=== PATIENT | male | born 1945 | race African-American/Black ===

== ENCOUNTER 2023-06-19 09:29 | Outpatient (AMB) | payer MEDICARE, SELFPAY ==
[2023-06-19 09:37] VITALS: BMI 30.1
--- NOTE | 2023-06-19 09:37 | HO.NEPHOV_ITS ---
Vital Signs 06/19/23 09:37 Height 5 ft 7 in Weight 192 lb 7 oz BMI 30.1 Intake Visit Reasons: R/S 05/15/2023/ LVM Local Hazmat Driver Required: No Accompanied by: Self / Same As Patient Allergies No Known Allergies Allergy (Verified 06/19/23 09:38) HPI Comments Details: Krzysztof is a elderly man with a history of chronic kidney disease in the setting of longstanding hypertension and diabetes mellitus. He is history of non-small cell carcinoma of the lung. He is being followed by Dr. Villasenor Recently was hospitalized for severe anemia and received blood transfusion. The recent serum creatinine 0.9 mg/dL. He is on high dose of diuretics currently on torsemide 100 mg b.i.d. and metolazone 5 mg once a day. He has been watching his weight at home. Today he denies any new complaints like headache nausea vomiting or shortness of breath. No urinary symptoms. This is a tele visit [facility] Social History Patient Tobacco Use Status: Current someday Tobacco user Use of substances other than those prescribed or required for medical reasons: No Physical Exam Vital Signs: BMI result Body Mass Index 30.1 Results Reviewed Results Reviewed: Creatinine 0.9 Nephrology Results: No Data to Display Assessment & Plan Assessment & Plan (1) CKD (chronic kidney disease): Code(s): N18.9 - Chronic kidney disease, unspecified Category: Medical Plan Elderly man with chronic kidney disease in the setting of longstanding hypertension diabetes mellitus and congestive heart failure. From a renal standpoint he is doing reasonably well. Renal function is close to baseline. Congestive heart failure he is on high-dose of diuretics continue to follow up with automotive sales specialist. Encouraged to stay on low-sodium diet and keep monitoring his weight at home. Non-small cell carcinoma of the lung being followed by oncologist. History of severe anemia status post blood transfusion. No absolute indication for Epogen at this time. No changes were made to his prescriptions today. She will follow along as needed. Orders: Orders Basic Metabolic Panel 3 Months N18.9 - Chronic kidney disease, unspecified Basic Metabolic Panel 5 Weeks N18.9 - Chronic kidney disease, unspecified Coding Level of Care Code Tele New Pt Level 3 (18184) Diagnoses CKD (chronic kidney disease) N18.9
== END 2023-06-19 10:08 | disposition home or self-care (01) ==
PROVIDERS: PCP Internal Medicine; Visit Provider Internal Medicine Hypertension Specialist
DX: I13.0 Hypertensive heart and chronic kidney disease with heart failure and stage 1 through stage 4 chronic kidney disease, or unspecified chronic kidney disease (principal); E11.22 Type 2 diabetes mellitus with diabetic chronic kidney disease; I50.9 Heart failure, unspecified; N18.9 Chronic kidney disease, unspecified
CPT/HCPCS: 99442

== ENCOUNTER → 2023-06-19 09:29 | Outpatient (BNVA) | payer MEDICARE, SELFPAY | PROVIDERS: PCP Internal Medicine; Visit Provider Internal Medicine Hypertension Specialist ==

== ENCOUNTER 2023-10-11 12:16 | Outpatient (AMB) | payer MEDICARE, SELFPAY ==
[2023-10-11 12:17] VITALS: BP 102/42; PULSE 73; O2SAT 94
--- NOTE | 2023-10-11 12:17 | HO.NEPHOV_ITS ---
Vital Signs 10/11/23 12:17 Height 5 ft 7 in BP 102/42 L Blood Pressure Location Rt brachial Position Sitting Pulse 73 Pulse Source Pulse Oximeter Pulse Oximetry (%) 94 Oxygen Delivery Method Room Air Intake Visit Reasons: 3 mon follow up- Conf Driller And Broacher Required: No Accompanied by: Spouse Allergies No Known Allergies Allergy (Verified 10/11/23 12:20) Medication List - Last Reconciled 10/11/23 by Tobi Lee MD albuterol sulfate 90 mcg/actuation (Ventolin HFA) inhalation ascorbic acid (vitamin C) (Vitamin C) 500 mg PO DAILY atorvastatin 40 mg PO DAILY dapagliflozin propanediol (Farxiga) 10 mg PO DAILY digoxin 125 mcg PO DAILY ferrous sulfate 325 mg PO BID insulin glargine (Basaglar KwikPen U-100 Insulin) units subcut insulin lispro (Admelog U-100 Insulin lispro) subcut insulin syringe-needle U-100 As directed metolazone 5 mg PO ONCE metoprolol succinate ER 25 mg PO DAILY spironolactone 25 mg PO DAILY torsemide 100 mg PO BID HPI Comments Details: Krzysztof is a elderly man with a history of chronic kidney disease in the setting of longstanding hypertension and diabetes mellitus. He is history of non-small cell carcinoma of the lung. He is being followed by Dr. Villasenor Recently was hospitalized for severe anemia and received blood transfusion. The recent serum creatinine 0.9 mg/dL. He is on high dose of diuretics currently on torsemide 100 mg b.i.d. and metolazone 5 mg once a day. He has been watching his weight at home. Today he denies any new complaints like headache nausea vomiting or shortness of breath. No urinary symptoms. [facility] Social History Patient Tobacco Use Status: Current someday Tobacco user Physical Exam Vital Signs: Last Vital Signs Pulse 73 10/11/23 12:17 BP 102/42 L 10/11/23 12:17 Pulse Ox 94 10/11/23 12:17 Oxygen Delivery Method Room Air 10/11/23 12:17 Const General: comfortable; No acute distress Orientation/consciousness: patient oriented x3 Eyes General: appearance normal, both eyes and all related structures Visual Modi: normal visual modi by confrontation Neck Neck: Yes supple and Yes no JVD Resp Effort & Inspection: normal respiratory effort and respiratory effort not decreased Auscultation: rhonchi Cardio Palpation: no palpable S3 and no palpable S4 Heart sounds: no rubs GI Inspection: Yes normal to inspection Palpation (GI): Soft to palpation Percussion: Yes normal to percussion Auscultation: normal bowel sounds General: Yes no CVA tenderness Back/Spine/Pelvis Back: no CVA tenderness Skin General skin exam: no petechiae and no purpura Neuro General: patient oriented x3 and no focal motor deficits Extrem General: No clubbing Results Reviewed Results Reviewed: Creatinine 0.9 Nephrology Results: No Data to Display Assessment & Plan Assessment & Plan (1) CKD (chronic kidney disease): Code(s): N18.9 - Chronic kidney disease, unspecified Category: Medical Plan Elderly man with chronic kidney disease in the setting of longstanding hypertension diabetes mellitus and congestive heart failure. From a renal standpoint he is doing reasonably well. Renal function is close to baseline. Congestive heart failure he is on high-dose of diuretics continue to follow up with resident services coordinator. Encouraged to stay on low-sodium diet and keep monitoring his weight at home. Non-small cell carcinoma of the lung being followed by oncologist. History of severe anemia status post blood transfusion. No absolute indication for Epogen at this time. No changes were made to his prescriptions today. She will follow along as needed. Orders: Orders Electrolytes 6 Months N18.9 - Chronic kidney disease, unspecified Blood Urea Nitrogen 6 Months N18.9 - Chronic kidney disease, unspecified Creatinine 6 Months N18.9 - Chronic kidney disease, unspecified Coding Level of Care Code Est Pt Level 4 (58028) Diagnoses CKD (chronic kidney disease) N18.9
== END 2023-10-11 12:43 | disposition home or self-care (01) ==
PROVIDERS: PCP Internal Medicine; Visit Provider Internal Medicine Hypertension Specialist
DX: N18.9 Chronic kidney disease, unspecified (principal)
CPT/HCPCS: 99214

== ENCOUNTER → 2023-10-11 12:16 | Outpatient (BNVA) | payer MEDICARE, SELFPAY | PROVIDERS: PCP Internal Medicine; Visit Provider Internal Medicine Hypertension Specialist | DX: E11.22 Type 2 diabetes mellitus with diabetic chronic kidney disease (principal); I12.9 Hypertensive chronic kidney disease with stage 1 through stage 4 chronic kidney disease, or unspecified chronic kidney disease; N18.9 Chronic kidney disease, unspecified | CPT/HCPCS: 99212 ==

== ENCOUNTER 2024-04-08 11:47 | Outpatient (AMB) | payer MEDICARE, SELFPAY ==
--- NOTE | 2024-04-08 11:51 | HO.NEPHOV ---
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 And Receiving Material Handler Required: No Accompanied by: Spouse Allergies No Known Allergies Allergy (Verified 04/08/24 11:53) Medication List - Last Reconciled 04/08/24 by Tobi Lee MD albuterol sulfate 90 mcg/actuation (Ventolin HFA) inhalation ascorbic acid (vitamin C) (Vitamin C) 500 mg PO DAILY atorvastatin 40 mg PO DAILY dapagliflozin propanediol (Farxiga) 10 mg PO DAILY digoxin 125 mcg PO DAILY ferrous sulfate 325 mg PO BID insulin glargine (Basaglar KwikPen U-100 Insulin) units subcut insulin lispro (Admelog U-100 Insulin lispro) subcut insulin syringe-needle U-100 As directed metolazone 5 mg PO ONCE metoprolol succinate ER 25 mg PO DAILY pantoprazole 40 mg PO BID potassium chloride ER mEq PO DAILY spironolactone 25 mg PO DAILY torsemide 100 mg PO BID umeclidinium-vilanterol 62.5-25 mcg/actuation (Anoro Ellipta) 1 inh inhalation DAILY HPI Comments Details: Krzysztof is a elderly man with a history of chronic kidney disease in the setting of longstanding hypertension and diabetes mellitus. He is history of non-small cell carcinoma of the lung. He is being followed by Dr. Villasenor Recently was hospitalized for severe anemia and received blood transfusion. The recent serum creatinine 0.9 mg/dL. He is on high dose of diuretics currently on torsemide 100 mg b.i.d. and metolazone 5 mg once a day. He has been watching his weight at home. Today he denies any new complaints like headache nausea vomiting or shortness of breath. No urinary symptoms. 04/08/24 Had 3 hospitalization Had GI bleed s/p Endo s/p IV Iron for anemia Has a lung nodule and starting radiation Rx on April 20 [facility] Social History Patient Tobacco Use Status: Current someday Tobacco user Physical Exam Const General: comfortable; No acute distress Orientation/consciousness: patient oriented x3 Eyes General: appearance normal, both eyes and all related structures Visual Modi: normal visual modi by confrontation Neck Neck: Yes supple and Yes no JVD Resp Effort & Inspection: normal respiratory effort and respiratory effort not decreased Auscultation: rhonchi Cardio Palpation: no palpable S3 and no palpable S4 Heart sounds: no rubs GI Inspection: Yes normal to inspection Palpation (GI): Soft to palpation Percussion: Yes normal to percussion Auscultation: normal bowel sounds General: Yes no CVA tenderness Back/Spine/Pelvis Back: no CVA tenderness Skin General skin exam: no petechiae and no purpura Neuro General: patient oriented x3 and no focal motor deficits Extrem General: No clubbing Results Reviewed Results Reviewed: Creatinine 0.9 01/25/24 BUN 28 Cr 1.2 03/21/24 BUN 32 : cr 1.12 Nephrology Results: No Data to Display Assessment & Plan Assessment & Plan (1) CKD (chronic kidney disease): Code(s): N18.9 - Chronic kidney disease, unspecified Category: Medical Plan Elderly man with chronic kidney disease in the setting of longstanding hypertension diabetes mellitus and congestive heart failure. From a renal standpoint he is doing reasonably well. Renal function is close to baseline. Congestive heart failure he was on high-dose of diuretics continue to follow up with production worker. Encouraged to stay on low-sodium diet and keep monitoring his weight at home. Non-small cell carcinoma of the lung being followed by oncologist. Await radiationRx History of severe anemia status post blood transfusion. s/p EGD and IV Iron No absolute indication for Epogen at this time. No changes were made to his prescriptions today. Shall will follow along as needed. Orders: Orders Basic Metabolic Panel 4 Months N18.9 - Chronic kidney disease, unspecified Coding Level of Care Code Est Pt Level 4 (34013) Diagnoses CKD (chronic kidney disease) N18.9
[2024-04-08 11:57] VITALS: BP 98/58; PULSE 73; O2SAT 98
--- OUTSIDE RECORDS SUMMARY | 2024-04-08 12:20 | XMS_ITS | Continuity of Care Document ---
Author Organization [facility] Address [address] [place] [address]- Care Team Providers Care Kiln Feeder Name Role Phone Buddy Cota MD Primary Care Physician Encounter [facility] Date(s): 03/06/24 - 04/05/[address] [address] Encounter Type: Triage Allergies, Adverse Reactions, Alerts No Known Allergies Immunizations Given and Recorded Vaccine Date Status Refusal Reason SARS-CoV-2 (COVID-19) mRNA BNT-162b2 vac 12/31/21 Recorded SARS-CoV-2 (COVID-19) mRNA BNT-162b2 vac 01/01/21 Recorded SARS-CoV-2 (COVID-19) mRNA BNT-162b2 vac 06/10/20 Recorded SARS-CoV-2 (COVID-19) mRNA BNT-162b2 vac 05/19/20 Recorded SARS-CoV-2 mRNA ([id number]) vax 08/08/21 Recorded Medications Admelog 100 units/mL injectable solution = 1 units, Subcutaneous Infusion, 3 times a day, 0 Refills, Maintenance, 10/03/23 2:19:00 PM EDT, Partial fill upon patient request if the prescription is for a schedule II opioid drug. Start Date: 10/03/23 Status: Ordered Repeat number: 1 Anoro Ellipta 62.5 mcg-25 mcg/inh inhalation powder 1 puffs, Inhalation, Daily, # 3 each, 4 Refills, Maintenance, 09/09/23 9:58:00 AM EDT, Powder, Partial fill upon patient request if the prescription is for a schedule II opioid drug. Start Date: 09/09/23 Stop Date: 12/02/24 Status: Ordered Quantity: 3.0 Unit: each Repeat number: 5 atorvastatin 40 mg oral tablet 1 tablet = 40 mg, By Mouth, Daily at bedtime, # 90 tablet, 3 Refills, Maintenance, 11/25/23 1:29:00 PM EDT, Tablet, [id number], Partial fill upon patient request if the prescription is for a schedule II opioid drug., 170, cm, 11/12/23 13:11:00 EDT, Height, 88.7, kg, 06/18/23 11:12:00 EDT,Dry Weight Start Date: 11/25/23 Status: Ordered Quantity: 90.0 Unit: tablet Repeat number: 4 Basaglar KwikPen = 28 units, Subcutaneous Infusion, Daily, 30 units of Basaglar in the morning, and 12 at night., 0 Refills, Maintenance, 10/03/23 2:20:00 PM EDT, Partial fill upon patient request if the prescription is for a schedule II opioid drug. Start Date: 10/03/23 Status: Ordered Repeat number: 1 Basaglar KwikPen = 8 units, Subcutaneous Infusion, Daily at bedtime, 0 Refills, Maintenance, 02/28/24 8:49:00 AM EST,Partial fill upon patient request if the prescription is for a schedule II opioid drug. Start Date: 02/28/24 Status: Ordered Repeat number: 1 BiPAP Machine See Instructions, # 1 each, Maintenance, BIPAP 02/12, use daily while sleeping. Can adjust setting as needed, 08/27/22 3:52:00 PM EDT, Supply Start Date: 08/27/22 Status: Ordered Quantity: 1.0 Unit: each Repeat number: 1 digoxin 0.125 mg oral tablet 0.125 mg, By Mouth, Daily, # 90 tablet, Refills 3, Tot. Refills 3, Maintenance, 05/13/23 8:19:00 AM EDT, Route to Pharmacy Electronically, [id number], Partial fill upon patient request if the prescription is for a schedule II opioid drug., 176, cm, 04/18/23 15:05:00 EST, Height, 97, kg, 08/18/22 22:12:00 EDT, Dry Weight Start Date: 05/13/23 Status: Ordered Quantity: 90.0 Unit: tablet Repeat number: 4 Farxiga 10 mg oral tablet 1 tablet = 10 mg, By Mouth, Daily, # 30 tablet, 5 Refills, Maintenance, 04/15/21 12:01:00 PM EST, Tablet, [id number], Partial fill upon patient request if the prescription is for a scheduleII opioid drug., 170.2, cm, 04/14/21 12:37:00 EST, Height, 96.2, kg, 04/07/21 6:08:00 EST, Dry Weight Start Date: 04/15/21 Status: Ordered Quantity: 30.0 Unit: tablet Repeat number: 6 ferrous sulfate 325 mg oral tablet 1 tablet = 325 mg, By Mouth, 2 times a day, # 90 tablet, 1 Refills, Maintenance, 05/21/23 1:36:00 PM EDT, Tablet, [facility], 170, cm, 05/21/23 7:47:00 EDT, Height, 91.8, kg, 05/18/23 13:29:00 EDT, Dry Weight Start Date: 05/21/23 Status: Ordered Quantity: 90.0 Unit: tablet Repeat number: 2 metolazone 5 mg oral tablet TAKE ONE TABLET BY MOUTH EVERY SATURDAY: TAKE 30 MINUTES BEFORE THE TORSEMIDE DOSE EVERY SATURDAY Start Date: 03/17/24 Status: Ordered Repeat number: 1 metoprolol 25 mg oral tablet, extended release 25 mg, 1, tablet, By Mouth, Daily, # 90 tablet, Refills 3, Tot. Refills 3, Maintenance, 11/25/23 1:29:00 PM EDT, Route to Pharmacy Electronically, [id number], Partial fill upon patient request if the prescription is for a schedule II opioid drug., 170, cm, 11/12/23 13:11:00 EDT, Height, 88.7, kg, 06/18/23 11:12:00 EDT, Dry Weight Start Date: 11/25/23 Status: Ordered Quantity: 90.0 Unit: tablet Repeat number: 4 o2 concentrator o2 concentrator, See Instructions, # 1 each, Refills 0, Tot. Refills 0, Maintenance, 5 Liter O2 concentrator - fax is [phone] - use order # [id number], 12/20/23 2:16:00 PM EDT, Supply Start Date: 12/20/23 Status: Ordered Quantity: 1.0 Unit: each Repeat number: 1 Potassium Chloride (Eqv-K-Tab) 20 mEq oral tablet, extended release 1 tablet = 20 mEq, By Mouth, Daily, MD aware of spironolactone, # 30 tablet, 2 Refills, Maintenance, 03/06/24 2:30:00 PM EST, ER Tablet, [id number], Partial fill upon patient request if theprescription is for a schedule II opioid drug., 170, cm, 02/28/24 16:15:00 EST, Height, 85, kg, 02/28/24 16:15:00 EST, Dry Weight Start Date: 03/06/24 Status: Ordered Quantity: 30.0 Unit: tablet Repeat number: 3 Protonix 40 mg oral delayed release tablet 1 tablet = 40 mg, By Mouth, 2 times a day, # 60 tablet, 0 Refills, Maintenance, 02/20/24 9:08:00 AM EST, EC Tablet, 170, cm, 02/20/24 6:19:00 EST, Height, 85, kg, 02/17/24 14:59:00 EST, Dry Weight Start Date: 02/20/24 Stop Date: 03/21/24 Status: Ordered Quantity: 60.0 Unit: tablet Repeat number: 1 spironolactone 25 mg oral tablet 25 mg, 1, tablet, By Mouth, Daily, # 90 tablet, Refills 3, Tot. Refills 3, Maintenance, 10/29/23 4:52:00 PM EDT, Route to Pharmacy Electronically, [id number], Partial fill upon patient request if the prescription is for a schedule II opioid drug., 170, cm, 10/17/23 10:24:00 EDT, Height, 88.7, kg, 06/18/23 11:12:00 EDT, Dry Weight Start Date: 10/29/23 Status: Ordered Quantity: 90.0 Unit: tablet Repeat number: 4 Theratrum Complete with Lutein and Lycopene By Mouth, Daily, 0 Refills, Maintenance, 10/17/23 3:52:00 PM EDT, Partial fill upon patient request if the prescription is for a schedule II opioid drug. Start Date: 10/17/23 Status: Ordered Repeat number: 1 torsemide 100 mg oral tablet 1 tablet = 100 mg, By Mouth, 2 times a day, # 120 each, 3 Refills, Maintenance, 08/14/23 4:54:00 PM EDT, Tablet, [id number], Partial fill upon patient request if the prescription is for a schedule II opioid drug., 170, cm, 06/26/23 13:01:00 EDT, Height, 88.7, kg, 06/18/23 11:12:00 EDT, Dry Weight Start Date: 08/14/23 Status: Ordered Quantity: 120.0 Unit: each Repeat number: 4 Ventolin HFA 108 mcg/inh inhalation aerosol with adapter 2 puffs, Inhalation, 4 times a day, PRN for wheezing, # 18 Gm, 0 Refills, Maintenance, 08/19/22 2:26:00 AM EDT, Aerosol, Partial fill upon patient request if the prescription is for a schedule II opioid drug. Start Date: 08/19/22 Status: Ordered Quantity: 18.0 Unit: g Repeat number: 1 Vitamin C 500 mg oral tablet 1 tablet = 500 mg, By Mouth, Daily, 0 Refills, Maintenance, 03/06/24 4:15:00 PM EST, Partial fill upon patient request if the prescription is for a schedule II opioid drug. Start Date: 03/06/24 Status: Ordered Repeat number: 1 Problem List Condition Confirmation Course Effective Dates Status Health Status Informant Abdominal aortic aneurysm (AAA) 3.0 cm to 5.5 cm in diameter in male Confirmed Active Biventricular heart failure with reduced left ventricular function Confirmed Active Coronary artery calcification Confirmed Active Non-ischemic cardiomyopathy Confirmed Active Chronic respiratory failure with hypoxia, on home O2 therapy Confirmed Active COPD without exacerbation Confirmed Active Carotid disease, bilateral Confirmed Active Anticoagulated Confirmed Active History of lung cancer Confirmed Active Hypercholesterolemia Confirmed Active Iron deficiency anemia Confirmed Active Presence of Watchman left atrial appendage closure device Confirmed Active Nicotine dependence Confirmed Active Non compliance w medication regimen Confirmed Active Nonsustained ventricular tachycardia Confirmed Active Obese class I Confirmed Active WENDI (obstructive sleep apnea) Confirmed Active Permanent atrial fibrillation Confirmed Active 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 Type: Cigarettes. Sex Sex Representation Male (finding) Patient Care team information Care Team Personnel Name: Buddy Cota MD Position: [facility] Physician - Pediatrics Member Role: PCP Address: [address] [place] [address] - [place] Telecom: Name: Rosa MCLEOD, Tobi Wheeler Position: [facility] Renal MD Member Role: Lifetime Consulting Physician Address: [address] [place] [address] [address] [place] [address]- [place] Telecom: Name: Rita Gaona RN Position: [facility] RN Member Role: Primary Care Nurse Name: Ketty Davis Position: [facility] RN Supv Member Role: Primary Care Nurse Name: Camryn Peña RN Position: S RN Member Role: Primary Care Nurse Name: Ilene Cuba RN Position: S RN Member Role: Primary Care Nurse Name: Tabatha Whitley RN Position: [facility] RN Member Role: Primary Care Nurse Name: Boyd Da Silva RN Position: [facility] RN Member Role: Primary Care Nurse Name: Kd Oconnor MD Position: S Outreach Member Role: Lifetime Consulting Physician Address: [address] [facility] [place] [address]- Telecom: Name: Omayra Platt RN Position: [facility] Outreach Member Role: Primary Care Nurse Name: Sean Sawant MD Position: [facility] Renal MD Member Role: Lifetime Consulting Physician Address: [address] [facility] [place] [place] [address]- [place] Telecom: Name: Janette Alcala RN Position: [facility] RN Member Role: Primary Care Nurse Care Team Related Persons Name: SLY WILKERSON Name: SLY WILKERSON Name: SLY WILKERSON Insurance Providers Guarantor name: TONY MCKEON RHEA Health Plan Information #: 1 Payer: MEDICARE A INPT 25 Member Number: NA Policy Number: NA Group Number: NA Health Plan Information #: 2 Payer: [employer] SUP Member Number: NA Policy Number: NA Group Number: NA
--- OUTSIDE RECORDS SUMMARY | 2024-04-08 12:20 | XMS_ITS | Patient Health Record ---
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 Name Role Phone Buddy Cota MD Primary Care Provider Fili ilable Black, Liza Unavailable [phone] Allergies No Known Allergies Results Component Value Reference Range Notes HEMOGLOBIN A1C (GLYCOHEMOGLO BIN) Reviewed date:01/29/2024 01:48:15 PM Interpretation: Performing Lab: Notes/Report: TOTAL HEMOGLOBIN (HGBA1C) 7.6 Reason For Referral No Information Medications Medication SIG (Take, Route, Frequency, Duration) Notes Start Date End Date Status Multivitamin Active Pravastatin Sodium 40 MG 1 tablet Orally Once a day for 30 day(s) Not-Taking metOLazone 5 MG 1 tablet Orally Once a day Active Sacubitril-Valsartan 24-26 MG 1 tablet Orally Twice a day for 30 day(s) Not-Taking Metoprolol Succinate Active Jardiance 25 MG 1 tablet Orally Once a day for 30 day(s) Not-Taking Vitamin C Active Metoprolol Tartrate 25 MG 1 tablet with food Orally Twice a day for 30 day(s) Not-Taking Spironolactone 25 MG 1 tablet Orally for 30 day(s) Not-Taking Nicotine 7 MG/24HR 1 patch to skin Transdermal Once a day for 30 day(s) Not-Taking Farxiga 10 MG 1 tablet Orally Once a day Not-Taking Proventil HFA 108 (90 Base) MCG/ACT 1 puff as needed Inhalation every 4 hrs Not-Takin g Insulin Not-Taking Ipratropium [place] Not-Taking Umeclidinium-Vilanterol Not-Taking Basaglar KwikPen 100 UNIT/ML as directed Subcutaneous Active Digoxin 125 MCG 1 tablet Orally for 30 day(s) Active Rivaroxaban 20 MG 1 tablet Orally Once a day Not-Taking Ammonium Lactate 12 % 1 application Externally to affected areas of dry skin to feet except for between the toes Twice a day for 30 days Active Anoro Ellipta 62.5-25 MCG/INH 1 puff Inhalation Once a day Active Torsemide 40 MG 1 tablet Orally Once a day Active Insulin Aspart Activ e Nicotine 21 MG/24HR 1 patch to skin Transdermal Once a day for 30 day(s) Active oxygen Active Dapagliflozin Propanediol Active Atorvastatin Calcium 40 MG 1 tablet Orally Once a day Active glipiZIDE 10 MG 1 tablet 30 minutes before breakfast Orally Once a day for 30 day(s) Not-Taking Ferrous Sulfate Acti ve Chromium Picolinate 200 MCG 1 tablet Orally Once a day for 30 day(s) Not-Taking Immunizations Vaccine Route Administration Date Status Comme nts COVID-19 Pfizer BioNTech Vaccine Unknown 01/01/2021 Administered 1ST DOSE: 05/19/2020 2ND DOSE: 06/10/2020 Influenza Unknown 11/25/2020 Administered Social History Tobacco Use: Social History Observation Description Date Details (start date - stop date) Current Smoker NA - NA Tobacco use other than smoking: Question Answer Notes Are you an other tobacco user? No Tobacco Control (Standard) Question Answer Notes Tobacco use: Current smoker How often do you smoke cigarettes? Every day How many cigarettes a day do you smoke? 21-30 How soon after you wake up d o you smoke your first cigarette? 6-30 minutes Are you interested in quitting? Thinking about q uitting AUDIT-C (Standard) Question Answer Notes Did you have a drink contain ing alcohol in the past year? Yes How often did you have six o r more drinks on one occasion in the past year? Never (0 point) How many drinks did you have on a typical day when you were drinking in the past year? 1 or 2 drinks (0 point) How often did you have a dri nk containing alcohol in the past year? Monthly or less (1 point) Points 1 Interpretation Negative Problems Problem Type SNOMED Code ICD Code Onset Dates Problem Status W/U Status Risk Notes Problem Acquired hammer toe of right foot (5614322609884458) Other hammer toe(s) (acquired), right foot (M20.41) Active confirmed Problem Acquired hammer toe of left foot (7386748549431867) Other hammer toe(s) (acquired), left foot (M20.42) Active confirmed Problem Polyneuropathy due to type 2 diabetes mellitus (752074097) Type 2 diabetes mellitus with diabetic polyneuropathy (E11.42) Active confirmed Problem 51608415049316450 Pressure injur y of left heel, unstageable (L89.620) Active confirmed Problem 43583133303554989 Pressure injur y of right heel, unstageable (L89.610) Active confirmed Problem 22225012 Essential hypertension (I10) Active confirmed Vital Signs Blood pressure diastolic 60 mm Hg 01/29/2024 Height 5ft 7in in 01/29/2024 Blood pressure systolic 110 mm Hg 01/29/2024 Weight 188 lbs 01/29/2024 BMI 29.44 kg/m2 01/29/2024 Procedures Procedure Date Ordered Date Performed Result Body Sit e 72104-QQJJPEA NAIL, 6 OR MORE 06/05/2023 N/A 57968-Ngwzuyxz Plate 06/05/2023 N/A 89923-LUNR SKIN LESIONS, OVER 4 06/05/2023 N/A 37867-RCDWNHA NAIL, 6 OR MORE 01/29/2024 N/A 03769-JTPX SKIN LESIONS, OVER 4 01/29/2024 N/A Encounters Encounter Location Date Provider Diagnosis [address] [address] 06/05/2023 Liza Black Type 2 diabetes mellitus with diabetic polyneuropathy E11.42 ; Tinea unguium B35.1 and Ingrown nail L60.[address] [address] 01/29/2024 Liza Black Type 2 diabetes mellitus with diabetic polyneuropathy E11.42 ; Tinea unguium B35.1 and Xerosis of skin L85.3 [facility] [address] [place] [address] 12/04/2023 Liza Black Assessments Encounter Date Diagnosis (ICD Code) Assessment Notes Treatment Notes Treatment Clinical Notes Section Notes 06/05/2023 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.42) 01/29/2024 Tinea unguium (ICD-10 - B35.1) 01/29/2024 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.42) 06/05/2023 Tinea unguium (ICD-10 - B35.1) 06/05/2023 Ingrown nail (ICD-10 - L60.0) 01/29/2024 Xerosis of skin (ICD-10 - L85.3) Plan Of Treatment Pending Test Test Name Order Date 22893-GNPEVMB NAIL, 6 OR MORE 01/10/2021 52690-KWWAIFX NAIL, 6 OR MORE 07/11/2021 12810-VTYLIRK NAIL, 6 OR MORE 01/09/2022 85320-YZCTFJH NAIL, 6 OR MORE 09/14/2022 51812-CVLXZVC NAIL, 6 OR MORE 12/14/2022 57065-KQVHTOT NAIL, 6 OR MORE 06/05/2023 54878-WUAVIXB NAIL, 6 OR MORE 01/29/2024 35181-Tkxevxhi Plate 01/10/2021 05882-Gqsfivhw Plate 06/05/2023 29730-RVWE SKIN LESIONS, OVER 4 06/05/19 24 64683-YXSH SKIN LESIONS, OVER 4 01/29/20 24 37842-BSNX SKIN LESIONS, OVER 4 12/15/19 23 14208-IOXX SKIN LESIONS, OVER 4 09/15/19 23 30544-DPUW SKIN LESIONS, OVER 4 01/10/20 22 55073-THYP SKIN LESIONS, OVER 4 07/12/19 22 Next Appt Details Provider Name:Liza De Guzman , 06/03/2024 12:00:00 PM, [address] [facility], [place], [address], Insurance Providers Payer Name Payer Address Payer Phone Subscriber Number Group Number Insured Name Patient Relationship to Insured Coverage Start Date Coverage End Date Medicare National Gov[employer] [address] [place] [address] [phone] [id number] Christian Flowers Self - patient is the insured [employer] Medicare [id number] [address] [address] [place] [address] [id number] 1 Christian Flowers Self - patient is the insured Medical (General) History Medical History History ICD Code Cancer Diabetes type 2 Chicken Pox Heart Disease Surgical History Surgery Date(Month/Year) defib 05/2022 Watchman Procedure 12/18/23 Hospitalization History Reason Date(Month/Year) [facility]- low hemoglobin count 05/12-05/20 [facility]- edema, fluid 08/18-09/07/22 [facility] hemoglobin low 04/11/21
--- OUTSIDE RECORDS SUMMARY | 2024-04-08 12:20 | XMS_ITS | Clinical Summary ---
Author Organization [facility] Address [address] [facility] [facility] [address] [place] [address] Phone Care Team Providers Care Slip Maker Name Role Phone Buddy Cota MD Primary Care Provider [phone] Allergies No known active allergies Medications insulin glargine (Basaglar KwikPen) 100 UNIT/ML injection 34 units Active nicotine (NICODERM CQ) 21 MG/24HR Place 21 mg on the skin daily 10/15/2019 Active digoxin (LANOXIN) 125 MCG tablet TAKE 1 TABLET (125 MCG TOTAL) BY MOUTH ONCE DAILY 05/10/2020 Active insulin aspart (NovoLOG) 100 UNIT/ML injection Inject under the skin Active torsemide (DEMADEX) 100 MG tablet Take 20 mg by mouth in the morning. 12/30/2019 Active spironolactone (ALDACTONE) 25 MG tablet 12.5 mg 12/08/2020 Active atorvastatin (LIPITOR) 40 MG tablet Take 40 mg by mouth every morning 04/15/2021 Active Farxiga 10 MG tablet Take 1 tablet by mouth 1 (one) time each day 08/11/2021 Active omeprazole (PriLOSEC) [address] capsule Take 20 mg by mouth 10/17/2021 Active rivaroxaban (XARELTO) 20 MG tablet Take 20 mg by mouth 10/19/2021 Active Active Problems Problem Noted Date Diagnosed Date History of malignant neoplasm of thoracic cavity structure 03/07/2022 Drug therapy finding 03/07/2022 Chronic obstructive pulmonary disease 03/07/2022 Abdominal aortic aneurysm 03/07/2022 Chronic hypoxemic respiratory failure 03/07/2022 Noncompliance with medication regimen 03/07/2022 Iron deficiency anemia 03/07/2022 Nonsustained ventricular tachycardia 03/07/2022 Obese class I 03/07/2022 Type 2 diabetes mellitus 03/07/2022 Permanent atrial fibrillation 03/07/2022 Obstructive sleep apnea syndrome 03/07/2022 Renal disorder due to type 2 diabetes mellitus 0 07/13/2020 Hypertensive heart and renal disease with (congestive) heart failure 07/13/2020 Chronic kidney disease stage 2 07/13/2020 Atypical atrial flutter 11/25/2019 Pre-operative cardiovascular examination 019 Overview (07/19/2020): Last Assessment & Plan: Cording to the revised cardiac risk index, he has a 6% risk of a major cardiac event related to this upcoming surgery given his history of congestive heart failure. He is euvolemic on exam. He is not describing any symptoms of heart failure. He is stable at this time. He does not require any cardiac testing prior to his upcoming surgery. He is able to perform at least 4 METS of activity with no symptoms. This has been reviewed with Dr Reyes. Disorder of carotid artery 04/03/2017 Essential hypertension 04/03/2017 Overview (07/19/2020): Last Assessment & Plan: Pressure today is normal. Hyperlipidemia 04/03/2017 Primary cardiomyopathy 04/03/2017 Overview (07/19/2020): Last Assessment & Plan: He has a long history of a cardiomyopathy. Catheterization upon diagnosis showed no significant CAD. The last echocardiogram that I am able to locate shows an EF of 30-35%. He is appropriately on metoprolol succinate and lisinopril. He does not recall ever having a discussion about ICD placement. I would like him to have a repeat echocardiogram. I will follow-up with him after that. Systolic heart failure 04/03/2017 Tobacco dependence syndrome 04/03/2017 Immunizations Name Administration Dates Next Due Pneumococcal Polysaccharide 11/24/2014 Family History Medical History Relation Comments Diabetes Father Relation Status Comments Father Unknown Mother Unknown Social History Tobacco Use Types Packs/Day Years Used Date Smoking Tobacco: Every Day Cigarettes Smokeless Tobacco: Never Sex and Gender Information Value Date Recorded Sex Assigned at Not on file Legal Sex Male 4:41 PM EST Gender Identity Not on file Sexual Orientation Not on file Last Filed Vital Signs Vital Sign Reading Time Taken Comments Blood Pressure 136/62 03/07/2022 4:39 PM EST Pulse 88 03/07/2022 4:39 PM EST Temperature - - Respiratory Rate - - Oxygen Saturation 96% 03/07/2022 4:39 PM EST Inhaled Oxygen Concentration - - Weight 94.1 kg (207 lb 6.4 oz) 03/07/2022 4:39 P M EST Height 170.2 cm (5' 7 ) 12/14/2020 2:16 PM EDT Body Mass Index 32.48 12/14/2020 2:16 PM EDT Plan of Treatment Upcoming Encounters Date Type Department Care Team (Late st Contact Info) Description 04/20/2024 2:45 PM EST Office Visit [facility] [address] [address] Heather Elliott ARNP [address] [id number] Health Maintenance Due Date Last Done Comments Pneumococcal Vaccine: 65+ Years (2 of 2 - PCV) 11/25/2015 11/24/2014 Diabetes: Ophthalmology Exam 03/21/2020 Diabetes: Pedal Pulse Checked 03/21/2020 Diabetes: Sensory Foot Exam 03/21/2020 Diabetes: Visual Foot Exam 03/21/2020 Diabetes: Hemoglobin A1C 04/15/2022 022, 09/10/2019 Influenza Vaccine (#1) 2023 0, 12/10/2018 Hepatitis B Vaccine Aged Out No longe r eligible based on patient's age to complete this topic Procedures Procedure Name Priority Date/Time Associated Diagnosis Comments HEMOGLOBIN A1C W EAG Routine 01/13/2022 10:36 AM EST from Last 3 Months or Most Recently Relevant to Health Maintenance Results * (ABNORMAL) HEMOGLOBIN A1C W EAG (01/13/2022 10:36 AM EST) Hemoglobin A1C 7.0(H) (4.0-5.6) % [facility] Comment: MONITORING: In known diabetic patients, hemoglobin A1c targets should be discussed with health care provider. DIAGNOSTIC USE: ??The [place] Diabetes Association (ADA) and the World Health Organization (WHO) recommend the use of HbA1c to diagnose diabetes using a threshold of 6.5%. Patients who have an HbA1c between 5.7% and 6.4% are considered at increased risk for developing diabetes in the future. CAUTION: Falsely low HbA1c results may be observed in patients with hemolytic anemia, homozygous forms of abnormal hemoglobin (e.g. SS, CC, SC), , recent blood loss or hemoglobin F greater than 7%. Fructosamine may be used as an alternate test in these cases. REFERENCE: ADA: Standards of Medical Care in Diabetes 2020, The Journal of Clinical and Applied Research and Education Volume 43, Supplement 1 Estimated Average Glucose 154 MG/DL [facility] Comment: Testing performed or reported by [facility] Reference Leaders2020, a Service of [facility], [address] [place] [address] Yariel Huston MD, Slusher Operator [facility]# [id number] 01/13/2022 10:3 6 AM EST 01/13/2022 10:39 AM EST us Aps External Provider LAB BLOOD ORDERABLES Final Result [facility] from Last 3 Months or Most Recently Relevant to Health Maintenance Insurance MEDICARE [facility] MEDICARE [facility] Care Teams Slip Maker Relationship Specialty Start Date End Date Buddy Cota MD [address] [facility] [address] [place] [id number] PCP - General 02/29/20
--- OUTSIDE RECORDS SUMMARY | 2024-04-08 12:20 | XMS_ITS | Continuity of Care Document ---
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 Name Role Phone Buddy Cota MD Primary Care Physician [id number] Date[facility]/03/24 - 04/02/24 [facility] [address] [place] [address] Encounter Type: Triage Allergies, Adverse Reactions, Alerts No Known Allergies Immunizations Given and Recorded Vaccine Date Status Refusal Reason SARS-CoV-2 (COVID-19) mRNA BNT-162b2 vac 12/31/21 Recorded SARS-CoV-2 (COVID-19) mRNA BNT-162b2 vac 01/01/21 Recorded SARS-CoV-2 (COVID-19) mRNA BNT-162b2 vac 06/10/20 Recorded SARS-CoV-2 (COVID-19) mRNA BNT-162b2 vac 05/19/20 Recorded SARS-CoV-2 mRNA (xusoosb-pyka-xewbx) vax 08/08/21 Recorded Medications Admelog 100 units/mL [...] Refills, Maintenance, 11/25/23 1:29:00 PM EDT, Tablet, [facility], Partial fill upon patient request [...] 8:19:00 AM EDT, Route to Pharmacy Electronically, [facility], Partial fill upon patient request [...] Refills, Maintenance, 04/15/21 12:01:00 PM EST, Tablet, [facility], Partial fill upon patient request [...] Refills, Maintenance, 05/21/23 1:36:00 PM EDT, Tablet, [facility] 3, 170, cm, 05/21/23 7:47:00 EDT, Height, [...] 1:29:00 PM EDT, Route to Pharmacy Electronically, [facility], Partial fill upon patient request [...] 5 Liter O2 concentrator - fax is [phone] - use order # [id number], 12/20/23 2:16:00 PM EDT, Supply Start Date: 12/20/23 Status: Ordered Quantity: 1.0 Unit: each Repeat number: 1 Potassium Chloride (Eqv-K-Tab) 20 mEq oral tablet, extended release 1 tablet = 20 mEq, By Mouth, Daily, MD aware of spironolactone, # 30 tablet, 2 Refills, Maintenance, 03/06/24 2:30:00 PM EST, ER Tablet, [facility], Partial fill upon patient request [...] 4:52:00 PM EDT, Route to Pharmacy Electronically, [facility], Partial fill upon patient request [...] Refills, Maintenance, 08/14/23 4:54:00 PM EDT, Tablet, [id number], Partial fill upon patient request if the [...] Confirmed Active Obese class I Confirmed Active EWNDI (obstructive sleep apnea) Confirmed Active Permanent atrial fibrillation Confirmed Active 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 Type: Cigarettes. Sex Sex Representation Male (finding) Patient Care team information Care Team Personnel Name: Budyd Cota MD Position: [facility] Physician - Pediatrics Member Role: PCP Address: [address] [place] [address] [place] [address]- RD Telecom: Name: Tobi Lee MD Position: [facility] Renal MD Member Role: Lifetime Consulting Physician Address: [address] [place] [address] [address] [place] [address]- [place] Telecom: Name: Rita Gaona RN Position: S RN Member Role: Primary Care Nurse Name: Ketty Davis Position: [facility] RN Supv Member Role: Primary Care Nurse Name: Camryn Peña RN Position: [facility] RN Member Role: Primary Care Nurse Name: Ilene Cuba RN Position: S RN Member Role: Primary Care Nurse Name: Tabatha Whitley RN Position: [facility] RN Member Role: Primary Care Nurse Name: Boyd Da Silva RN Position: [facility] RN Member Role: Primary Care Nurse Name: Kd Oconnor MD Position: [facility] Outreach Member Role: Lifetime Consulting Physician Address: [address] [facility] [place] [address]- Telecom: Name: Omayra Platt RN Position: [facility] Outreach Member Role: Primary Care Nurse Name: Sean Sawant MD Position: [facility] Renal MD Member Role: Lifetime Consulting Physician Address: [address] [facility] [place] [address]- [place] Telecom: Name: Janette Alcala RN Position: [facility] RN Member Role: Primary Care Nurse Care Team Related Persons Name: RHEA SLY Name: SLY WILKERSON Name: SLY WILKERSON Insurance Providers Guarantor name: TONY MCKEON RHEA Health Plan Information #: 1 Payer: MEDICARE A INPT 25 Member Number: NA Policy Number: NA Group Number: NA Health Plan Information #: 2 Payer: [employer] SUP Member Number: NA Policy Number: NA Group Number: NA
--- OUTSIDE RECORDS SUMMARY | 2024-04-08 12:20 | XMS_ITS | Continuity of Care Document ---
Author Organization [facility] [place] Address [address] [place] [address]- Care Team Providers Care Grain Receiver Name Role Phone Buddy Cota MD Primary Care Physician Encounter [facility] Date(s): 03/04/24 - 04/03/24 [facility] [place] [address] [place], [place] [address] Encounter Type: Triage Allergies, Adverse Reactions, Alerts No Known Allergies Immunizations Given and Recorded Vaccine Date Status Refusal Reason SARS-CoV-2 (COVID-19) mRNA BNT-162b2 vac 12/31/21 Recorded SARS-CoV-2 (COVID-19) mRNA BNT-162b2 vac 01/01/21 Recorded SARS-CoV-2 (COVID-19) mRNA BNT-162b2 vac 06/10/20 Recorded SARS-CoV-2 (COVID-19) mRNA BNT-162b2 vac 05/19/20 Recorded SARS-CoV-2 mRNA (outczla-nuxe-pdaqp) vax 08/08/21 Recorded Medications Admelog 100 units/mL [...] Refills, Maintenance, 11/25/23 1:29:00 PM EDT, Tablet, [facility], Partial fill upon patient request [...] 8:19:00 AM EDT, Route to Pharmacy Electronically, [facility], Partial fill upon patient request [...] Refills, Maintenance, 04/15/21 12:01:00 PM EST, Tablet, [facility], Partial fill upon patient request [...] Refills, Maintenance, 05/21/23 1:36:00 PM EDT, Tablet, [facility] 3, 170, cm, 05/21/23 7:47:00 EDT, [...] 1:29:00 PM EDT, Route to Pharmacy Electronically, [facility], Partial fill upon patient request [...] 5 Liter O2 concentrator - fax is [phone] - use order # [id number], 12/20/23 2:16:00 PM EDT, Supply Start Date: 12/20/23 Status: Ordered Quantity: 1.0 Unit: each Repeat number: 1 Potassium Chloride (Eqv-K-Tab) 20 mEq oral tablet, extended release 1 tablet = 20 mEq, By Mouth, Daily, MD aware of spironolactone, # 30 tablet, 2 Refills, Maintenance, 03/06/24 2:30:00 PM EST, ER Tablet, [facility], Partial fill upon patient request [...] 4:52:00 PM EDT, Route to Pharmacy Electronically, [facility], Partial fill upon patient request [...] Refills, Maintenance, 08/14/23 4:54:00 PM EDT, Tablet, [facility], Partial fill upon patient request [...] Team Personnel Name: Buddy Cota MD Position: [facility] Physician - Pediatrics Member Role: PCP Address: [address] [place], [place] [address]o [place], [place] - Telecom: Name: Tobi Lee MD Position: [facility] Renal MD Member Role: Lifetime Consulting Physician Address: [address] [place] [address] [address] [place] [address]- Telecom: Name: Rita Gaona RN Position: [facility] RN Member Role: Primary Care Nurse Name: Ketty Davis Position: [facility] RN Supv Member Role: Primary Care Nurse Name: Camryn Peña RN Position: S RN Member Role: Primary Care Nurse Name: Ilene Cuba RN Position: S RN Member Role: Primary Care Nurse Name: Tabatha Whitley RN Position: [facility] RN Member Role: Primary Care Nurse Name: Boyd Da Silva RN Position: [facility] RN Member Role: Primary Care Nurse Name: Kd Oconnor MD Position: [facility] Outreach Member Role: Lifetime Consulting Physician Address: [address] [facility] [place], [place] - Telecom: Name: Omayra Platt RN Position: [facility] Outreach Member Role: Primary Care Nurse Name: Sean Sawant MD Position: [facility] Renal MD Member Role: Lifetime Consulting Physician Address: [address] [facility] [place] [address]- Telecom: Name: Janette Alcala RN Position: [facility] RN Member Role: Primary Care Nurse [...]
--- OUTSIDE RECORDS SUMMARY | 2024-04-08 12:20 | XMS_ITS | Continuity of Care Document ---
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 Name Role Phone Buddy Cota MD Primary Care Physician [phone] Encounter [facility] NBR [id number] Date(s): 02/24/24 - 03/25/24 [facility] [address] [place] [address]- Encounter Type: Triage Allergies, Adverse Reactions, Alerts No Known Allergies Immunizations Given and Recorded Vaccine Date Status Refusal Reason SARS-CoV-2 (COVID-19) mRNA BNT-162b2 vac 12/31/21 Recorded SARS-CoV-2 (COVID-19) mRNA BNT-162b2 vac 01/01/21 Recorded SARS-CoV-2 (COVID-19) mRNA BNT-162b2 vac 06/10/20 Recorded SARS-CoV-2 (COVID-19) mRNA BNT-162b2 vac 05/19/20 Recorded SARS-CoV-2 mRNA (odufdoy-dceh-dfceu) vax 08/08/21 Recorded Medications Admelog 100 units/mL [...] Refills, Maintenance, 11/25/23 1:29:00 PM EDT, Tablet, [id number], Partial fill upon patient [...] 8:19:00 AM EDT, Route to Pharmacy Electronically, [id number], Partial fill upon patient request if the prescription is for a schedule II opioid drug., 176, cm, 04/18/23 15:05:00 EST, Height, 97, kg, 07/01/23 22:12:00 EDT, Dry Weight Start Date: 05/13/23 Status: Ordered Quantity: 90.0 Unit: tablet Repeat number: 4 Farxiga 10 mg oral tablet 1 tablet = 10 mg, By Mouth, Daily, # 30 tablet, 5 Refills, Maintenance, 04/15/21 12:01:00 PM EST, Tablet, [facility], Partial fill upon patient [...] Refills, Maintenance, 05/21/23 1:36:00 PM EDT, Tablet, [facility], 170, cm, 05/21/23 7:47:00 EDT, Height, [...] 1:29:00 PM EDT, Route to Pharmacy Electronically, [facility], Partial fill upon patient [...] 5 Liter O2 concentrator - fax is [phone] - use order # [id number], 12/20/23 2:16:00 PM EDT, Supply Start Date: 12/20/23 Status: Ordered Quantity: 1.0 Unit: each Repeat number: 1 Potassium Chloride (Eqv-K-Tab) 20 mEq oral tablet, extended release 1 tablet = 20 mEq, By Mouth, Daily, MD aware of spironolactone, # 30 tablet, 2 Refills, Maintenance, 03/06/24 2:30:00 PM EST, ER Tablet, [facility], Partial fill upon patient [...] 4:52:00 PM EDT, Route to Pharmacy Electronically, [facility], Partial fill upon patient [...] Refills, Maintenance, 08/14/23 4:54:00 PM EDT, Tablet, [facility], Partial fill upon patient request if the [...] Team Personnel Name: Buddy Cota MD Position: [facility] Physician - Pediatrics Member Role: PCP Address: [address] [place] [address] - [employer]: Name: Tobi Lee MD Position: [facility] Renal MD Member Role: Lifetime Consulting Physician Address: [address] [place] [address] [address] [place] [address]- [place] [employer]: Name: Rita Gaona RN Position: S RN Member Role: Primary Care Nurse Name: Ketty Davis Position: [facility] RN Supv Member Role: Primary Care Nurse Name: Camryn Peña RN Position: [facility] RN Member Role: Primary Care Nurse Name: Ilene Cuba RN Position: S RN Member Role: Primary Care Nurse Name: Tabatha Whitley RN Position: [facility] RN Member Role: Primary Care Nurse Name: Boyd Da Silva RN Position: [facility] RN Member Role: Primary Care Nurse Name: Kd Oconnor MD Position: [facility] Outreach Member Role: Lifetime Consulting Physician Address: [address] [facility] [place] [address]- Tele[employer]: Name: Omayra Platt RN Position: [facility] Outreach Member Role: Primary Care Nurse Name: Sean Sawant MD Position: [facility] Renal MD Member Role: Lifetime Consulting Physician Address: [address] [facility] [place] [address]- [place] [employer]: Name: Janette Alcala RN Position: [facility] RN Member Role: Primary Care Nurse Care Team Related Persons Name: SLY WILKERSON Name: SLY WILKERSON Name: SLY WILKERSON Insurance Providers Guarantor name: TONYELIDIA TOROABEL WILKERSON Health Plan Information #: 1 Payer: MEDICARE PART B OUTPT Member Number: NA Policy Number: NA Group Number: NA Health Plan Information #: 2 Payer: [employer] HE[employer] SUP Member Number: NA Policy Number: NA Group Number: NA Health Plan Information #: 3 Payer: I10 MEDICARE SUPPL [id number] Member Number: NA Policy Number: NA Group Number: NA
--- OUTSIDE RECORDS SUMMARY | 2024-04-08 12:20 | XMS_ITS ---
Author Organization [facility] Address [address] 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 [id number] Pcp:Buddy Cota MD Subjective: * Chief Complaints: * ??? * Medical History:? Objective: * Vitals:? Assessment: Plan: * Treatment: * Images: * The named appointment provid er may or may not be the originator of this progress note, and it is not deemed complete until electronically signed by the appointment provider. Sign off status: Pending * Provider:Tita De Guzman DPM Date:?2023 Generated for Tabatha munoz/Pito/Marjan on:?04/08/2024 12:20 PM EST
--- OUTSIDE RECORDS SUMMARY | 2024-04-08 12:20 | XMS_ITS ---
Author Organization [facility] Cristobal Espinzoa Address [address] [facility] [place] [address] Care Team Providers Care Environmental Control Administrator Name Role Phone Buddy Cota MD Primary Care Provider Unava ilable Black, Liza Unavailable [phone] Allergies No Known Allergies REASON FOR VISIT At Risk Footcare, Skin problem(s) Medications Medication SIG (Take, Route, Frequency, Duration) Notes Start Date End Date Status glipiZIDE 10 MG 1 tablet 30 minutes before breakfast Orally Once a day for 30 day(s) Not-Taking Chromium Picolinate 200 MCG 1 tablet Orally Once a day for 30 day(s) Not-Taking Pravastatin Sodium 40 MG 1 tablet Orally Once a day for 30 day(s) Not-Taking Jardiance 25 MG 1 tablet Orally Once a day for 30 day(s) Not-Taking Metoprolol Tartrate 25 MG 1 tablet with food Orally Twice a day for 30 day(s) Not-Taking Sacubitril-Valsartan 24-26 MG 1 tablet Orally Twice [...] 4 hrs Not-Takin g Insulin Not-Taking Ipratropium Seagraves Not-Taking Umeclidinium-Vilanterol Not-Taking Rivaroxaban 20 MG 1 tablet Orally Once a day Not-Taking Anoro Ellipta 62.5-25 MCG/INH 1 puff Inhalation Once a day Active Basaglar KwikPen 100 UNIT/ML as directed Subcutaneous Active Digoxin 125 MCG 1 tablet Orally for 30 day(s) Active Torsemide 40 MG 1 tablet Orally Once a day Active Insulin Aspart Activ e Nicotine 21 MG/24HR 1 patch to skin Transdermal Once a day for 30 day(s) Active oxygen Active Dapagliflozin Propanediol Active Atorvastatin Calcium 40 MG 1 tablet Orally Once a day Active Ferrous Sulfate Acti ve Metoprolol Succinate Active Multivitamin Active metOLazone 5 MG 1 tablet Orally Once a day Active Ammonium Lactate 12 % 1 application Externally to affected areas of dry skin to feet except for between the toes Twice a day for 30 days Active Vitamin C Active Social History Tobacco Use: Social History Observation [...] Problem Status W/U Status Risk Notes Problem [id number] Essential hypertension (I10) Active confirmed Vital Signs Height 5ft 7in in 01/29/2024 Weight 188 lbs 01/29/2024 BMI 29.44 kg/m2 01/29/2024 Blood pressure systolic 110 mm Hg 01/29/20 24 Blood pressure diastolic 60 mm Hg 024 Procedures Procedure Date Ordered Date Performed Result Body Sit e 86500-FIPCEQL NAIL, 6 OR MORE 01/29/2024 N/A 85670-DAKT SKIN LESIONS, OVER 4 01/29/2024 N/A Encounters Encounter Location Date Provider Diagnosis [facility] [address] [id number] 01/29/2024 Liza De Guzman Type 2 diabetes tahira itus with diabetic polyneuropathy E11.42 ; Tinea unguium B35.1 and Xerosis of skin L85.3 Assessments Encounter Date Diagnosis (ICD Code) Assessment Notes Treatment Notes Treatment Clinical Notes Section Notes 01/29/2024 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.42) 01/29/2024 Tinea unguium (ICD-10 - B35.1) 01/29/2024 Xerosis of skin (ICD-10 - L85.3) Plan Of Treatment Medication Medication Name Sig Start Date Stop Date Notes Ammonium Lactate 12 % 1 application Exte rnally to affected areas of dry skin to feet except for between the toes Twice a day for 30 days Pending Test Test Name Order Date 77718-DBZEXHR NAIL, 6 OR MORE 01/29/2024 11398-[facility] SKIN LESIONS, OVER 4 01/29/20 24 Next Appt Details Follow Up: 4 Months, Reason: Provider Name:Liza De Guzman , 06/03/2024 12:00:00 PM, [address] [place] [address], [place], [phone], Procedure Notes * Category Sub-Category Detail Notes Debride Nail 6-10 Nail debridement Due to the cl inical pathology outlined in the exam findings, performance of this nail treatment is medically necessary as its management by an unskilled/untrained nonprofessional would put this patients foot and overall health at risk. Therefore, debridement to affected nail(s), as described in exam, was performed exclusively by the physician of record to reduce/remove overall nail length, girth, thickness, subungual debris, and necrotic tissue, by manual and/or electrical means through the use of a nail nipper and/or dremel-type bearing grinder, to a more viable healthy nail plate or bed tissue 6-10 nails in total. Silver nitrate was used for any petechial bleeding as necessary. Definitive antifungal treatment options, both pharmaceutical and surgical, have been reviewed and discussed with the patient. The patient solely prefers the use of intermittent/as needed professional debridement services for their nail condition and understands the need for additional periodic treatments to maintain effectiveness in symptomatic relief - 67427 Keratoma Treatment Parring or Cutting o f Benign Hyperkeratotic Lesion(s) (-57) More than 4 Lesions - Due to the at risk nature of the patients medical condition as documented in the exam findings, performance of this keratoderma treatment is medically necessary as its management by an unskilled/untrained nonprofessional would put this patients foot and overall health at risk. Therefore, the benign hyperkeratotic lesions, ( 8 ) in total, locations as stated and described in the exam ( Lateral Plantar Heel(s) B/L Midfoot B/L SUB MTH (s) 3 ,4 B/L, ), were pared, and/or cut utilizing a sterile 15 blade, tissue nippers, and/or power dremel instrumentation by the physician of record - [id number] Progress Notes * RHEA Christian Meli B:1945 (78 yo M)Acc No.[id number]:01/29/2024 Progress Note Patient:?Christian GOSSneth Provider:?Liza De Guzman DPM :1945???Age:78 Y???Sex:Male Georges e:01/29/2024 Address:[address] , [place], [id number] Pcp:Buddy Cota MD Subjective: * Chief Complaints: * ???At Risk FootcareSkin prob janusz(s) * HPI: ???At Risk footcare:?Pt States Last PCP Visit:?Date?01/07/2024 ???Skin problems:?Nature:?dryness , scaling.?Location:?B/L .?Duration:?several days.?Course:?worse.? * ROS:?General/Constitutional:?Nausea?denies.?Vomiting?denies.?Hunger Thirst?denies.?Loss appetite?denies.?Chills?denies.?Fatigue?denies.?Fever?denies.?Night Sweats?denies.?Unexplained weight loss?denies.?Unexplained weight gain?denies.?HEENTM:?Dentures?denies.?Dizziness?denies.?Glasses/contacts?denies.?Retinopathy?den ies.?Blurred/double vision?denies.?TMJ?denies.?Discharge/drainage?denies.?Implants?denies.?Sore throat?denies.?Dental implants?denies.?Hard of hearing ?denies.?Difficulty chewing/swallowing/speaking?denies.?Nose bleeds?denies.?Sore mouth?denies.?Respiratory:?On O xygen?admits.?Pneumonia/pleurisy?denies.?Bronchitis?denies.?Emphysema?denies.?Co ughing?denies.?Cough blood?denies.?Shortness of breath?admits.?Wheezing?denies.?Cardiovascular:?Pacemaker?denies.?MVP?denies.?WPW?denies.?CHF?denies.?Heart attack?denies.?Septal defect?denies.?Rapid beat?denies.?Chest pain ?denies.?Atrial Fib.?denies.?Murmur/Palpitations?denies.?Gastrointestinal:?Hemorrhoids?denies.?Stomach/Abdominal pain?denies.?Dark blood stool?denies.?Irritable bowel ?denies.?Constipation?denies.?Diarrhea?denies.?Hematology:?Swelling?admits.?Clots?denies.?Varicose Veins?denies.?Bruising?denies.?Bleeding problem?admits.?Genitourinary:?Blood urine?denies.?Frequent/Painfu/urination/bladder control?denies.?Kidney stones?denies.?Infection (UTI)?denies.?Nephropathy?denies.?sex trans dis (STD)?denies.?Prostate?denies.?Musculoskeletal:?Hammertoes?denies.?Bunions?denies.?Back Pain?denies.?Muscle Cramps/ Resting?denies.?Muscle cramps / walking?denies.?Generalized aches and pains?admits.?Weakness?denies.?Integ.:?[place]?denies.?Scars?denies.?Corns/calluses?, admits.?Ingrown nails?admits.?Painful nails?admits.?Open Sores?denies.?Rashes?denies.?Neurologic:?Difficulty sleeping?denies.?Brain disorder?denies.?Numbness?denies.?Balance t rouble?denies.?Confusion?denies.?Fainting/blackouts?denies.?Tingling?denies.?Norman mors?denies.? * Medical History:? * Surgical History:?defib 06/07 23[facility] Procedure 12/18/23 * Hospitalization/Major Diagno stic Procedure:?[facility] hemoglobin low 04/11/21[facility]- edema, fluid 08/18-09/07/22[facility], [facility]- low hemoglobin count 05/12-05/21/23 * Family History:?Mother: cecy nickerson?Father: , diagnosed with Diabetic - NIDDM.? * Social History:?Tobacco Use:?Tobacco use other than smoking?Are you an other tobacco user??No ?Tobacco Control (Standard)?Tobacco use:?Current smoker ?How often do you smoke cigarettes??Every day ?How many cigarettes a day do you smoke??21-30 ?How soon after you wake up do you smoke your first cigarette??6-30 minutes ?Are you interested in quitting??Thinking about quitting ???Drugs/Alcohol:?Drugs?Have you used drugs other than those for medical reasons in the past 12 months??No ???Miscellaneous:?Caffeine: yes, frequency: 2 cups of coffee. ?Children: no. ?Exercise: no. ?Marital status: . 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 ???Drug/Alcohol:?AUDIT-C (Standard)?Did you have a drink containing alcohol in the past year??Yes ?How often did you have six or more drinks on one occasion in the past year??Never (0 point) ?How many drinks did you have on a typical day when you were drinking in the past year??1 or 2 drinks (0 point) ?How often did you have a drink containing alcohol in the past year??Monthly or less (1 point) ?Points?1 ?Interpretation?Negative * Medications:?TakingmetOLazon e 5 MG Tablet 1 tablet Orally Once a day Multivitamin Vitamin C Metoprolol Succinate Dapagliflozin Propanediol oxygen Ferrous Sulfate Atorvastatin Calcium 40 MG Tablet 1 tablet Orally Once a day Torsemide 40 MG Tablet 1 tablet Orally Once a day Nicotine 21 MG/24HR Patch 24 Hour 1 patch to skin Transdermal Once a day Insulin Aspart Digoxin 125 MCG Tablet 1 tablet Orally Basaglar KwikPen 100 UNIT/ML Solution Pen-injector as directed Subcutaneous Anoro Ellipta 62.5-25 MCG/INH Aerosol Powder Breath Activated 1 puff Inhalation Once a day Taking metOLazone 5 MG Tablet 1 tablet Orally Once a day Taking Multivitamin Taking Vitamin C Taking Metoprolol Succinate Taking Dapagliflozin Propanediol Taking oxygen Taking Ferrous Sulfate Taking Atorvastatin Calcium 40 MG Tablet 1 tablet Orally Once a day Taking Torsemide 40 MG Tablet 1 tablet Orally Once a day Taking Nicotine 21 MG/24HR Patch 24 Hour 1 patch to skin Transdermal Once a day Taking Insulin Aspart Taking Digoxin 125 MCG Tablet 1 tablet Orally Taking Basaglar KwikPen 100 UNIT/ML Solution Pen-injector as directed Subcutaneous Taking Anoro Ellipta 62.5-25 MCG/INH Aerosol Powder Breath Activated 1 puff Inhalation Once a day Not-Taking/PRNRivaroxaban 20 MG Tablet 1 tablet Orally Once a day Ipratropium Seagraves Insulin Umeclidinium-Vilanterol Nicotine 7 MG/24HR Patch 24 Hour 1 patch to skin Transdermal Once a day Spironolactone 25 MG Tablet 1 tablet Orally Proventil HFA 108 (90 Base) MCG/ACT Aerosol Solution 1 puff as needed Inhalation every 4 hrs Farxiga 10 MG Tablet 1 tablet Orally Once a day Sacubitril-Valsartan 24-26 MG Tablet 1 tablet Orally Twice a day Pravastatin Sodium 40 MG Tablet 1 tablet Orally Once a day Metoprolol Tartrate 25 MG Tablet 1 tablet with food Orally Twice a day Jardiance 25 MG Tablet 1 tablet Orally Once a day glipiZIDE 10 MG Tablet 1 tablet 30 minutes before breakfast Orally Once a day Chromium Picolinate 200 MCG Tablet 1 tablet Orally Once a day Medication List reviewed and reconciled with the patientNot-Taking/PRN Rivaroxaban 20 MG Tablet 1 tablet Orally Once a day Not-Taking/PRN Ipratropium Seagraves Not-Taking/PRN Insulin Not-Taking/PRN Umeclidinium-Vilanterol Not-Taking/PRN Nicotine 7 MG/24HR Patch 24 Hour 1 patch to skin Transdermal Once a day Not-Taking/PRN Spironolactone 25 MG Tablet 1 tablet Orally Not-Taking/PRN Proventil HFA 108 (90 Base) MCG/ACT Aerosol Solution 1 puff as needed Inhalation every 4 hrs Not-Taking/PRN Farxiga 10 MG Tablet 1 tablet Orally Once a day Not-Taking/PRN Sacubitril-Valsartan 24-26 MG Tablet 1 tablet Orally Twice a day Not-Taking/PRN Pravastatin Sodium 40 MG Tablet 1 tablet Orally Once a day Not-Taking/PRN Metoprolol Tartrate 25 MG Tablet 1 tablet with food Orally Twice a day Not-Taking/PRN Jardiance 25 MG Tablet 1 tablet Orally Once a day Not-Taking/PRN glipiZIDE 10 MG Tablet 1 tablet 30 minutes before breakfast Orally Once a day Not-Taking/PRN Chromium Picolinate 200 MCG Tablet 1 tablet Orally Once a day Medication List reviewed and reconciled with the patient * Allergies:?N.K.D.A.yes[Aller gies Verified] Objective: * Vitals:?Ht: 5ft 7in, Wt: 188 , BMI: 29.44, Shoe size: 11, BP: 110/60 mm Hg, BS: 242, Ht-cm: 170.18 cm, Wt-k.28 kg. * ???Past Orders: ???Lab:HEMOGLOBIN A1C (GLYCO HEMOGLOBIN) (Order Date - 12/20/2023) (Collection Date & Time - 12/20/2023 01:47 PM) ? Value Reference Range ?TOTAL HEMOGLOBIN (HGBA1C) 7.6 * Examination: ???Ophthalmology Referral: ?DIABETES EYE EXAM?General Examination: ?GENERAL APPEARANCE:?Reveals a pleasant, alert, well nourished, well- developed, well hydrated individual, who demonstrates proper attention to hygiene/body habitus, and is in no acute distress, Pt accompanied by, , and/who is physically present in exam room at time of visit.?FOOT EXAM:?Neurological: ?SENSORY:?Neurological exam demonstrates reduced light touch sensation reduced sharp/dull pin prick discrimination 5.07 monofilament test performed at plantar aspects of 5 varied sites per foot shows sensation absent at Forefoot B/L.?Vascular: ?DP PULSES (B):?1/4, B/L.?PT PULSES (B):?1/4, B/L.?Nails: ?NAILS are:?elongated,overgrown,dystrophic,greater than 3mm thick,discolored and friable with crumbly malodorous subungual debris, ,, with dull to no pain on palpation due to neuropathy, 1-5 B/L.?Dermatologic: ?SKIN FINDINGS:?Skin exam reveals Keratotic lesion(s) located at Lateral Plantar Heel(s) B/L Midfoot B/L SUB MTH (s) 3?,4 B/L,? , Skin shows sign(s) of, dryness, scaling, in a stocking fashion, no fissure(s) present, B/L.? Assessment: * Assessment: 1.?Tinea unguium - B35.1???2 .?Type 2 diabetes mellitus with diabetic polyneuropathy - E11.42 (Primary)???3.?Xerosis of skin - L85.3???Specify :Acute problem, Uncomplicated (3),Rx Management (4)??? Plan: * Treatment: 2.?Tinea unguium?Procedure: 59646-[id number] NAIL, 6 OR MORE 3.?Xerosis of skin? Start Ammonium Lactate Cream, 12 %, 1 application, Externally to affected areas of dry skin to feet except for between the toes, Twice a day, 30 days, 140, Refills 2.?? * Procedures:?Debride Nail 6-10:?Nail debridement?Due to the clinical pathology outlined in the exam findings, performance of this nail treatment is medically necessary as its management by an unskilled/untrained nonprofessional would put this patients foot and overall health at risk. Therefore, debridement to affected nail(s), as described in exam, was performed exclusively by the physician of record to reduce/remove overall nail length, girth, thickness, subungual debris, and necrotic tissue, by manual and/or electrical means through the use of a nail nipper and/or dremel-type bearing grinder, to a more viable healthy nail plate or bed tissue 6-10 nails in total. Silver nitrate was used for any petechial bleeding as necessary. Definitive antifungal treatment options, both pharmaceutical and surgical, have been reviewed and discussed with the patient. The patient solely prefers the use of intermittent/as needed professional debridement services for their nail condition and understands the need for additional periodic treatments to maintain effectiveness in symptomatic relief - 73097.?Keratoma Treatment:?Parring or Cutting of Benign Hyperkeratotic Lesion(s)?(-57) More than 4 Lesions - Due to the at risk nature of the patients medical condition as documented in the exam findings, performance of this keratoderma treatment is medically necessary as its management by an unskilled/untrained nonprofessional would put this patients foot and overall health at risk. Therefore, the benign hyperkeratotic lesions, ( 8 ) in total, locations as stated and described in the exam ( Lateral Plantar Heel(s) B/L Midfoot B/L SUB MTH (s) 3 ,4 B/L, ), were pared, and/or cut utilizing a sterile 15 blade, tissue nippers, and/or power dremel instrumentation by the physician of record - [id number].? * Procedure Codes:?59237 DEBRI DE NAIL, 6 OR MORE, Modifiers: XS 60273 TRIM SKIN LESIONS, OVER 4, Modifiers: XS * Preventive Medicine:? ??Counseling:?Discussion:?-13: Office or other outpatient visit for the evaluation and management of an established patient, which required a medically appropriate history and/or examination and LOW level of DECISION MAKING for: 1 STABLE ACUTE UNCOMPLICATED PROBLEM, 2 OR MORE MINOR PROBLEMS, OR 1 STABLE CHRONIC PROBLEM, THAT POSE(S) A LOW RISK FOR MORBIDITY/MORTALITY. The visit on the day of the encounter encompassed interpreting the data and educating the patient as to the nature of their condition, treatment options available according to their individual PMH, meds, allergies, and overall health/living conditions, as well as any potential risks or complications that may occur from a failure to adhere to, and participate in, the recommended course of therapy. The discussion included a complete verbal, and/or written explanation of the examination results, any x-rays taken, the proposed diagnosis, and outline of the treatment plan. A schedule for future care needs was also explained. The patient verbalized an understanding of the instructions at this time and agreed to be an active participant in their treatment. If the patient should think of any questions or concerns after the visit, I have encouraged the patient to call the office.?Xerosis:?The patient was counseled on the diagnosis, potential etiologies, and treatment options for their skin condition. We discussed the risks and benefits of each option from performing no treatment, to utilizing OTC topical skin creams/ointments, to utilizing prescription topical creams/ointments, to utilizing customized compounded topical medications and use of nocturnal occlusion with any/all previously detailed therapies. We discussed the advantages and disadvantages of each possible treatment and importance for adherence to all the recommended therapies for optimum success and avoid potential complications such as open sore/infection/possible hospitalization. We discussed the potential effectiveness of each topical preparation as well as each ones possible side effects and/or patient medication interactions. Patient questions re: use, dosage, successful outcomes, and application consistency were reviewed and the patient verbalized that all answers were clearly understood. The patient has decided to apply skin creams to their feet save the interspaces while paying special attention to the heels. Pt and defer rx today- states they have cream at home they will try first . Rx will be added to chart if no results in 2 weeks will call for rx to be sent out.? ??Screening/Special Tests:?Fall Risk?Screening:?No falls in the past year ?FALLS: Screening for Future Fall Risk?Have you had two or more falls in the past year??No ?Have you had any falls with injury in the past year??No * Follow Up:?4 Months * Images: * Sign off status: Completed true * Provider:?Liza De Guzman DPM Date:?2023 Generated for Tabatha munoz/Pito/Marjan on:?04/08/2024 12:20 PM EST History and Physical Notes * HPI (History of Present Illness) Category Sub-Category Detail Notes Category Not es Skin problems Nature: dryness , scaling Location: B/L Duration: several days Course: worse At Risk footcare Pt States Last PCP Visit: Date: 4 Examination Category Sub-Category Detail Notes Category Not es Ingrown Nail INSPECTION: Neurological SENSORY: Neurological exa m demonstrates reduced light touch sensation reduced sharp/dull pin prick discrimination 5.07 monofilament test performed at plantar aspects of 5 varied sites per foot shows sensation absent at Forefoot B/L TINEL'S COMPRESSION: Dermatologic SKIN FINDINGS: Skin exam reveal s Keratotic lesion(s) located at Lateral Plantar Heel(s) B/L Midfoot B/L SUB MTH (s) 3 ,4 B/L, , Skin shows sign(s) of, dryness, scaling, in a stocking fashion, no fissure(s) present, B/L General Examination GENERAL APPEARANCE: Reveals a pleasant, alert, well nourished, well-developed, well hydrated individual, who demonstrates proper attention to hygiene/body habitus, and is in no acute distress, Pt accompanied by, , and/who is physically present in exam room at time of visit FOOT EXAM: Lower Extremity Neurological Exa m performed:: Yes Visual exam of foot performed:: Yes Date: 01/29/2024 Sensory testing performed:: sensations d iminished Sensory and motor testing performed:: se nsations diminished Pedal pulse taking performed:: 1+ Ophthalmology Referral DIABETES EYE EXAM Procedure Perform ed:: Yes ?Date of Exam Performed: 02/18/2023 Diabetic Retinopathy Screening:: Yes Findings of Diabetic Eye Exam:: no retin opathy Vascular DP PULSES (B): 1/4, B/L PT PULSES (B): 1/4, B/L Nails NAILS are: elongated,overgr own,dystrophic,greater than 3mm thick,discolored and friable with crumbly malodorous subungual debris, ,, with dull to no pain on palpation due to neuropathy, 1-5 B/L
--- OUTSIDE RECORDS SUMMARY | 2024-04-08 12:21 | XMS_ITS | Continuity of Care Document ---
Author Organization [facility] ter Address [address] [place] [address]- Care Team Providers Care Rn Neonatal Name Role Phone Buddy Cota MD Primary Care Physician Encounter [facility] Date(s): 02/18/24 - 03/19/[address] [id number] Attending Physician: Not on Staff, Attending MD Admitting Physician: Not on Staff, Admitting MD Referring Physician: Not on Staff, Referring MD Encounter Type: Pre-Outpt Allergies, Adverse Reactions, Alerts No Known Allergies Immunizations Given and Recorded Vaccine Date Status Refusal Reason SARS-CoV-2 (COVID-19) mRNA BNT-162b2 vac 12/31/21 Recorded SARS-CoV-2 (COVID-19) mRNA BNT-162b2 vac 01/01/21 Recorded SARS-CoV-2 (COVID-19) mRNA BNT-162b2 vac 06/10/20 Recorded SARS-CoV-2 (COVID-19) mRNA BNT-162b2 vac 05/19/20 Recorded SARS-CoV-2 mRNA (kemugiw-vcwk-xqnex) vax 08/08/21 Recorded Medications Admelog 100 units/mL [...] Refills, Maintenance, 11/25/23 1:29:00 PM EDT, Tablet, [facility], Partial fill upon patient [...] 8:19:00 AM EDT, Route to Pharmacy Electronically, [facility], Partial fill upon patient [...] Refills, Maintenance, 04/15/21 12:01:00 PM EST, Tablet, [facility], Partial fill upon patient [...] Refills, Maintenance, 05/21/23 1:36:00 PM EDT, Tablet, [facility] 3, 170, cm, 05/21/23 7:47:00 EDT, [...] 1:29:00 PM EDT, Route to Pharmacy Electronically, [facility], Partial fill upon patient [...] 5 Liter O2 concentrator - fax is [phone] - use order # [id number], 12/20/23 2:16:00 PM EDT, Supply Start Date: 12/20/23 Status: Ordered Quantity: 1.0 Unit: each Repeat number: 1 Potassium Chloride (Eqv-K-Tab) 20 mEq oral tablet, extended release 1 tablet = 20 mEq, By Mouth, Daily, MD aware of spironolactone, # 30 tablet, 2 Refills, Maintenance, 03/06/24 2:30:00 PM EST, ER Tablet, [facility], Partial fill upon patient [...] 4:52:00 PM EDT, Route to Pharmacy Electronically, [facility], Partial fill upon patient [...] Refills, Maintenance, 08/14/23 4:54:00 PM EDT, Tablet, [facility], Partial fill upon patient [...] Team Personnel Name: Buddy Cota MD Position: [facility] Physician - Pediatrics Member Role: PCP Address: [address] [place] [address]- [place] Telecom: Name: Tobi Lee MD Position: [facility] Renal MD Member Role: Lifetime Consulting Physician Address: [address] [place] [address] [address] [place] [address]- [place] Telecom: Name: Rita Gaona RN Position: S RN Member Role: Primary Care Nurse Name: Ketty Davis Position: [facility] RN Supv Member Role: Primary Care Nurse Name: Camryn Peña RN Position: S RN Member Role: Primary Care Nurse Name: Ilene Cuba RN Position: [facility] RN Member Role: Primary Care Nurse Name: Tabatha Whitley RN Position: [facility] RN Member Role: Primary Care Nurse Name: Boyd Da Silva RN Position: S RN Member Role: Primary Care Nurse Name: Kd Oconnor MD Position: [facility] Outreach Member Role: Lifetime Consulting Physician Address: [address] [facility] [place] [address]- Telecom: Name: Omayra Platt RN Position: [facility] Outreach Member Role: Primary Care Nurse Name: Sean Sawant MD Position: [facility] Renal MD Member Role: Lifetime Consulting Physician Address: [address] [facility] [place] [address]- [place] Telecom: Name: Janette Alcala RN Position: [facility] RN Member Role: Primary Care Nurse Care Team Related Persons Name: SLY WILKERSON Name: RHEA SLY Mathis Name: SLY WILKERSON Insurance Providers Guarantor name: [facility] Information #: 1 Payer: MEDICARE PART B OUTPT Member Number: NA Policy Number: NA Group Number: NA
--- OUTSIDE RECORDS SUMMARY | 2024-04-08 12:21 | XMS_ITS | Continuity of Care Document ---
Author Organization [facility] ter Address [address] [place] [address]- Care Team Providers Care Enrichment Director Name Role Phone Buddy Cota MD Primary Care Physician [phone] [id number] Date(s): 01/30/24 - 03/15/[address] [address] Attending Physician: Ruth MCLEOD(Hem/Onc), Luis Jalloh Admitting Physician: Ruth MCLEOD(Hem/Onc), Luis Jalloh Referring Physician: Emma Wolf Encounter Type: Pre-Outpt Allergies, Adverse Reactions, Alerts No Known Allergies Immunizations Given and Recorded Vaccine Date Status Refusal Reason SARS-CoV-2 (COVID-19) mRNA BNT-162b2 vac 12/31/21 Recorded SARS-CoV-2 (COVID-19) mRNA BNT-162b2 vac 01/01/21 Recorded SARS-CoV-2 (COVID-19) mRNA BNT-162b2 vac 06/10/20 Recorded SARS-CoV-2 (COVID-19) mRNA BNT-162b2 vac 05/19/20 Recorded SARS-CoV-2 mRNA (ohuhiur-wwst-iifao) vax 08/08/21 Recorded Medications Admelog 100 units/mL injectable solution = 1 units, Subcutaneous Infusion, 3 times a day, 0 Refills, Maintenance, 10/03/23 2:19:00 PM EDT, Partial fill upon patient request if the prescription is for a schedule II opioid drug. Start Date: 10/03/23 Status: Ordered Repeat number: 1 albuterol-ipratropium 3 mg-0.5 mg/3 ml inhalation solution BAND Nebulizer, Every 4 hours, PRN Wheezing/Shortness of Breath, 0 Refills, Maintenance, 05/30/22 10:54:00 AM EDT, Inhalation Solution, Partial fill upon patient request if the prescription is for a schedule II opioid drug. Start Date: 05/30/22 Status: Ordered Repeat number: 1 Anoro Ellipta [...] Refills, Maintenance, 11/25/23 1:29:00 PM EDT, Tablet, [facility], Partial fill upon [...] 8:19:00 AM EDT, Route to Pharmacy Electronically, [facility], Partial fill upon [...] Refills, Maintenance, 04/15/21 12:01:00 PM EST, Tablet, [facility], Partial fill upon patient request if [...] Refills, Maintenance, 05/21/23 1:36:00 PM EDT, Tablet, [facility] 3, 170, cm, 05/21/23 7:47:00 EDT, Height, 91.8, kg, 05/18/23 13:29:00 EDT, Dry Weight Start Date: 05/21/23 Status: Ordered Quantity: 90.0 Unit: tablet Repeat number: 2 metoprolol 25 mg oral tablet, extended release 25 mg, 1, tablet, By Mouth, Daily, # 90 tablet, Refills 3, Tot. Refills 3, Maintenance, 11/25/23 1:29:00 PM EDT, Route to Pharmacy Electronically, [facility] 2386, Partial fill upon patient request if the prescription is for a schedule II opioid drug., 170, cm, 11/12/23 13:11:00 EDT, Height, 88.7, kg, 06/18/23 11:12:00 EDT, Dry Weight Start Date: 11/25/23 Status: Ordered Quantity: 90.0 Unit: tablet Repeat number: 4 MiraLax oral powder for reconstitution = 17 Gm, By Mouth, Daily, dissolve in 4 to 8 oz of beverage, # 527 Gm, 0 Refills, Maintenance, 02/20/24 10:51:00 AM EST, REC Powder, [facility], Partial fill upon patient request if the prescription is for a schedule II opioid drug., 17 Gm By Mouth Daily,Instr:dissolve in 4 to 8 oz of beverage, 170, cm, 02/20/24 6:19:00 EST, Height, 85, kg, 02/17/24 14:59:00 EST, Dry Weight Start Date: 02/20/24 Status: Ordered Quantity: 527.0 Unit: g Repeat number: 1 o2 concentrator o2 concentrator, See Instructions, # 1 each, Refills 0, Tot. Refills 0, Maintenance, 5 Liter O2 concentrator - fax is [phone] - use order # [id number], 12/20/23 2:16:00 PM EDT, Supply Start Date: 12/20/23 Status: Ordered Quantity: 1.0 Unit: each Repeat number: 1 Potassium Chloride (Eqv-K-Tab) 20 mEq oral tablet, extended release 1 tablet = 20 mEq, By Mouth, Daily, MD aware of spironolactone, # 30 tablet, 2 Refills, Maintenance, 03/06/24 2:30:00 PM EST, ER Tablet, [facility], Partial fill upon [...] Quantity: 60.0 Unit: tablet Repeat number: 1 senna 187 mg oral tablet 2 tablet = 17.2 mg, By Mouth, Daily, PRN Constipation, # 50 tablet, 0 Refills, Maintenance, 02/20/24 10:51:00 AM EST, Tablet, [facility], Partial fill upon patient request if the prescription is for a schedule II opioid drug., 170, cm, 02/20/24 6:19:00 EST, Height, 85, kg, 02/17/24 14:59:00 EST, Dry Weight Start Date: 02/20/24 Status: Ordered Quantity: 50.0 Unit: tablet Repeat number: 1 spironolactone 25 mg oral tablet 25 mg, 1, tablet, By Mouth, Daily, # 90 tablet, Refills 3, Tot. 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 Type: Cigarettes. Sex Sex Representation Male (finding) Patient Care team information Care Team Personnel Name: Buddy Cota MD Position: [facility] Physician - Pediatrics Member Role: PCP Address: [address] [place] [address]- Telecom: Name: Tobi Lee MD Position: [facility] Renal MD Member Role: Lifetime Consulting Physician Address: [address] [place] [address] [address] [facility] [address]- Telecom: Name: Rita Gaona RN Position: S RN Member Role: Primary Care Nurse Name: Ketty Davis Position: S RN Supv Member Role: Primary Care Nurse Name: Camryn Peña RN Position: S RN Member Role: Primary Care Nurse Name: Ilene Cuba RN Position: S RN Member Role: Primary Care Nurse Name: Tabatha Whitley RN Position: S RN Member Role: Primary Care Nurse Name: Boyd Da Silva RN Position: [facility] RN Member Role: Primary Care Nurse Name: Kd Oconnor MD Position: [facility] Outreach Member Role: Lifetime Consulting Physician Address: [address] [facility] [place], [place] [address] Telecom: Name: Omayra Platt RN Position: [facility] Outreach Member Role: Primary Care Nurse Name: Sean Sawant MD Position: [facility] Renal MD Member Role: Lifetime Consulting Physician Address: [address] [facility] [place] [address]- Telecom: Name: Janette Alcala RN Position: [facility] RN Member Role: Primary Care Nurse Care Team Related Persons Name: SLY WILKERSON Name: SLY WILKERSON Name: SLY WILKERSON Insurance Providers Guarantor name: TONYLacieLINDAShubham WILKERSON Health Plan Information #: 1 Payer: MEDICARE PART B OUTPT Member Number: [id number] Policy Number: NA Group Number: NA Health Plan Information #: 2 Payer: [facility] SUP Member Number: [id number] Policy Number: NA Group Number: NA
--- OUTSIDE RECORDS SUMMARY | 2024-04-08 12:21 | XMS_ITS | Continuity of Care Document ---
Author Organization [facility] ter Address [address] [place] [address]- Care Team Providers Care Chorus Dancer Name Role Phone Buddy Cota MD Primary Care Physician Encounter 03/09/24 - 03/10/[address] [address]- Attending Physician: Not on Staff, Attending MD Referring Physician: Not on Staff, Referring MD Encounter Type: [facility] Allergies, Adverse Reactions, Alerts No Known Allergies Immunizations Given and Recorded Vaccine Date Status Refusal Reason SARS-CoV-2 (COVID-19) mRNA BNT-162b2 vac 12/31/21 Recorded SARS-CoV-2 (COVID-19) mRNA BNT-162b2 vac 01/01/21 Recorded SARS-CoV-2 (COVID-19) mRNA BNT-162b2 vac 06/10/20 Recorded SARS-CoV-2 (COVID-19) mRNA BNT-162b2 vac 05/19/20 Recorded SARS-CoV-2 mRNA (paubqfl-ihcv-whdip) vax 08/08/21 Recorded Medications Admelog 100 units/mL [...] Refills, Maintenance, 04/15/21 12:01:00 PM EST, Tablet, [facility] 2386, Partial fill upon patient request if [...] Refills, Maintenance, 05/21/23 1:36:00 PM EDT, Tablet, [facility] 3, 170, cm, 05/21/23 7:47:00 EDT, Height, 91.8, kg, 05/18/23 13:29:00 EDT, Dry Weight Start Date: 05/21/23 Status: Ordered Quantity: 90.0 Unit: tablet Repeat number: 2 metoprolol 25 mg oral tablet, extended release 25 mg, 1, tablet, By Mouth, Daily, # 90 tablet, Refills 3, Tot. Refills 3, Maintenance, 11/25/23 1:29:00 PM EDT, Route to Pharmacy Electronically, [facility] 2386, Partial fill upon patient request if [...] Maintenance, 02/20/24 10:51:00 AM EST, REC Powder, [facility]386, Partial fill upon [...] 5 Liter O2 concentrator - fax is [phone] - use order # [id number], 12/20/23 2:16:00 PM EDT, Supply Start Date: [...] Refills, Maintenance, 02/20/24 10:51:00 AM EST, Tablet, [facility]386, Partial [...] Confirmed Active Nonsustained ventricular tachycardia Confirmed Active WNEDI (obstructive sleep apnea) Confirmed Active Permanent atrial fibrillation Confirmed Active 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 Type: Cigarettes. Sex Sex Representation Male (finding) Patient Care team information Care Team Personnel Name: Buddy Cota MD Position: [facility] Physician - Pediatrics Member Role: PCP Address: [address] [place] [address]- [place] Telecom: Name: Rosa MCLEOD, Tobi Wheeler Position: [facility] Renal MD Member Role: Lifetime Consulting Physician Address: [address] [place] [address] [address] [place] [address]- [place] Telecom: Name: Rita Gaona RN Position: [facility] RN Member Role: Primary Care Nurse Name: Ketty Davis Position: [facility] RN Supv Member Role: Primary Care Nurse Name: Camryn Peña RN Position: S RN Member Role: Primary Care Nurse Name: Ilene Cuba RN Position: S RN Member Role: Primary Care Nurse Name: Tabatha Whitley RN Position: [facility] RN Member Role: Primary Care Nurse Name: Boyd Da Silva RN Position: [facility] RN Member Role: Primary Care Nurse Name: Kd Oconnor MD Position: [facility] Outreach Member Role: Lifetime Consulting Physician Address: [address] [facility] [address] Telecom: Name: Omayra Platt RN Position: [facility] Outreach Member Role: Primary Care Nurse Name: Sean Sawant MD Position: [facility] Renal MD Member Role: Lifetime Consulting Physician Address: [address] [facility] [address] Telecom: Name: Janette Alcala RN Position: [facility] RN Member Role: Primary Care Nurse Care Team Related Persons Name: SLY WILKERSON Name: SLY WILKERSON Name: SLY WILKERSON Insurance Providers Guarantor name: THONY WILKERSON Health Plan Information #: 1 Payer: MEDICARE PART B OUTPT Member Number: NA Policy Number: NA Group Number: NA Health Plan Information #: 2 Payer: [employer] SUP Member Number: NA Policy Number: NA Group Number: NA
--- OUTSIDE RECORDS SUMMARY | 2024-04-08 12:21 | XMS_ITS | Continuity of Care Document ---
Author Organization [facility] ter Address [address] [place] [address]- Care Team Providers Care Unisaw Operator Name Role Phone Buddy Cota MD Primary Care Physician [phone] Encounter [facility] Date(s): 02/28/24 - 03/29/[address] [address] Attending Physician: Not on Staff, Attending MD [...] mRNA BNT-162b2 vac 05/19/20 Recorded SARS-CoV-2 mRNA (cuoffcn-exly-mtvcc) vax 08/08/21 Recorded Medications Admelog 100 units/mL [...] Refills, Maintenance, 11/25/23 1:29:00 PM EDT, Tablet, [facility] 2386, Partial fill upon [...] 8:19:00 AM EDT, Route to Pharmacy Electronically, [facility], Partial fill upon [...] Refills, Maintenance, 04/15/21 12:01:00 PM EST, Tablet, [facility] 2386, Partial fill upon [...] Refills, Maintenance, 05/21/23 1:36:00 PM EDT, Tablet, [facility] 3, 170, cm, 05/21/23 7:47:00 EDT, [...] 1:29:00 PM EDT, Route to Pharmacy Electronically, [facility]386, Partial fill upon [...] 5 Liter O2 concentrator - fax is [phone] - use order # [id number], 12/20/23 2:16:00 PM EDT, Supply Start Date: 12/20/23 Status: Ordered Quantity: 1.0 Unit: each Repeat number: 1 Potassium Chloride (Eqv-K-Tab) 20 mEq oral tablet, extended release 1 tablet = 20 mEq, By Mouth, Daily, MD aware of spironolactone, # 30 tablet, 2 Refills, Maintenance, 03/06/24 2:30:00 PM EST, ER Tablet, [facility] 2386, Partial fill upon [...] 4:52:00 PM EDT, Route to Pharmacy Electronically, [facility], Partial fill upon [...] Refills, Maintenance, 08/14/23 4:54:00 PM EDT, Tablet, [facility], Partial fill upon [...] Team Personnel Name: Buddy Cota MD Position: [facility] Physician - Pediatrics Member Role: PCP Address: [address] [place] [address]- [place] Telecom: Name: Tobi Lee MD Position: [facility] Renal MD Member Role: Lifetime Consulting Physician Address: [address] [place] [address] [address] [facility] [address]- [place] Telecom: Name: Rita Gaona RN Position: [facility] RN Member Role: Primary Care Nurse Name: Ketty Davis Position: [facility] RN Supv Member Role: Primary Care Nurse Name: Camryn Peña RN Position: [facility] RN Member Role: Primary Care Nurse Name: Ilene Cuba RN Position: [facility] RN Member Role: Primary Care Nurse Name: Tabatha Whitley RN Position: [facility] RN Member Role: Primary Care Nurse Name: Boyd Da Silva RN Position: [facility] RN Member Role: Primary Care Nurse Name: Kd Oconnor MD Position: [facility] Outreach Member Role: Lifetime Consulting Physician Address: [address] [facility] [place], [place] [address] Telecom: Name: Omayra Platt RN Position: [facility] Outreach Member Role: Primary Care Nurse Name: Sean Sawant MD Position: [facility] Renal MD Member Role: Lifetime Consulting Physician Address: [address] [facility] [place] [address]- [place] Telecom: Name: Janette Alcala RN Position: [facility] RN Member Role: Primary Care Nurse Care Team Related Persons Name: RHEA, SLY Name: SLY WILKERSON Name: RHEASLY VALLADARES Insurance Providers Guarantor name: TONY MCKEON RHEA Health Plan Information #: 1 Payer: MEDICARE PART B OUTPT Member Number: NA Policy Number: NA Group Number: NA Health Plan Information #: 2 Payer: [employer] SUP Member Number: NA Policy Number: NA Group Number: NA Health Plan Information #: 3 Payer: 0 MEDICARE SUPPL [id number] Member Number: NA Policy Number: NA Group Number: NA
--- OUTSIDE RECORDS SUMMARY | 2024-04-08 12:21 | XMS_ITS ---
Author Organization [facility] Address [address] [place] [address] Care Team Providers Care Beam Sealer Name Role Phone Buddy Cota MD Primary Care Provider Unava ilable Liza De Guzman Unavailable [phone] REASON FOR VISIT same day cx appt 12/04/23 Encounters Encounter Location Date Provider Diagnosis [facility] [address] [place] [address] 12/04/2023 Liza De Guzman Plan Of Treatment Next Appt Details Provider Name:Liza De Guzman , 06/03/2024 12:00:00 PM, [address] [facility], [place], [address], Progress Notes * [place] Christian Meli B:1945 (78 yo M)Acc No.[id number]:12/04/2023 Patient:?Christian Gossneth :1945???Age:78 Y???Sex:Male Address:[address] , [place], [address] * true * Date:? Generated for Chapincitoi alexander/Pito/eTransmitting on:?04/08/2024 12:20 PM EST
--- OUTSIDE RECORDS SUMMARY | 2024-04-08 12:21 | XMS_ITS | Continuity of Care Document ---
Author Organization [facility] ter Address [address] [place] [address]- Care Team Providers Care Senior Living Advisor Name Role Phone Buddy Cota MD Primary Care Physician [phone] Encounter [facility] [place](s[place] 02/20/24 - 03/21/[address] [address] Attending Physician: Not on Staff, Attending MD [...] mRNA BNT-162b2 vac 05/19/20 Recorded SARS-CoV-2 mRNA (bcvxbts-ftiq-gjkix) vax 08/08/21 Recorded Medications Admelog 100 units/mL [...] Refills, Maintenance, 11/25/23 1:29:00 PM EDT, Tablet, [facility], Partial fill upon patient [...] 8:19:00 AM EDT, Route to Pharmacy Electronically, [facility], Partial fill upon patient [...] Refills, Maintenance, 04/15/21 12:01:00 PM EST, Tablet, [facility], Partial fill upon patient [...] Refills, Maintenance, 05/21/23 1:36:00 PM EDT, Tablet, [facility] 3, 170, cm, 05/21/23 7:47:00 EDT, [...] 1:29:00 PM EDT, Route to Pharmacy Electronically, [facility], Partial fill upon patient [...] 5 Liter O2 concentrator - fax is [phone] - use order # [id number], 12/20/23 2:16:00 PM EDT, Supply Start Date: 12/20/23 Status: Ordered Quantity: 1.0 Unit: each Repeat number: 1 Potassium Chloride (Eqv-K-Tab) 20 mEq oral tablet, extended release 1 tablet = 20 mEq, By Mouth, Daily, MD aware of spironolactone, # 30 tablet, 2 Refills, Maintenance, 03/06/24 2:30:00 PM EST, ER Tablet, [facility], Partial fill upon patient [...] 4:52:00 PM EDT, Route to Pharmacy Electronically, [facility], Partial fill upon patient [...] Refills, Maintenance, 08/14/23 4:54:00 PM EDT, Tablet, [facility], Partial fill upon patient [...] Team Personnel Name: Buddy Cota MD Position: [facility] Physician - Pediatrics Member Role: PCP Address: [address] [place] [address]- [place] Telecom: Name: Tobi Lee MD Position: [facility] Renal MD Member Role: Lifetime Consulting Physician Address: [address] [place] [address] [address] [facility] [address]- [place] Telecom: Name: Rita Gaona RN Position: [facility] RN Member Role: Primary Care Nurse Name: Ketty Davis Position: [facility] RN Supv Member Role: Primary Care Nurse Name: Camryn Peña RN Position: [facility] RN Member Role: Primary Care Nurse Name: Ilene Cuba RN Position: [facility] RN Member Role: Primary Care Nurse Name: Tabatha Whitley RN Position: [facility] RN Member Role: Primary Care Nurse Name: Boyd Da Silva RN Position: [facility] RN Member Role: Primary Care Nurse Name: Kd Oconnor MD Position: [facility] Outreach Member Role: Lifetime Consulting Physician Address: [address] [facility] [place], [place] [address] Telecom: Name: Omayra Platt RN Position: [facility] Outreach Member Role: Primary Care Nurse Name: Sean Sawant MD Position: [facility] Renal MD Member Role: Lifetime Consulting Physician Address: [address] [facility] [place] [address] [place] Telecom: Name: Janette Alcala RN Position: [facility] RN Member Role: Primary Care Nurse Care Team Related Persons Name: RHEA, SLY Name: SLY WILKERSON Name: RHEASLY VALLADARES Insurance Providers Guarantor name: TONY MCKEON RHEA Health Plan Information #: 1 Payer: MEDICARE PART B OUTPT Member Number: NA Policy Number: NA Group Number: NA Health Plan Information #: 2 Payer: JESS KOENIG Member Number: NA Policy Number: ISSA Group Number: NA
--- OUTSIDE RECORDS SUMMARY | 2024-04-08 12:21 | XMS_ITS | Continuity of Care Document ---
Author Organization [facility] ter Address [address] [place] [address]- Care Team Providers Care Photograph Tinter Name Role Phone Buddy Cota MD Primary Care Physician Encounter [facility] Date(s): 03/17/24 - 03/17/[address] [address] Discharge Disposition: A-D/C Home Attending Physician: Saran Hodge Jr, MD Admitting Physician: Saran Hodeg Jr, MD Referring Physician: Saran Hodge Jr, MD Encounter Type: Disch Daystay Allergies, Adverse Reactions, Alerts No Known Allergies Immunizations Given and Recorded Vaccine Date Status Refusal Reason SARS-CoV-2 (COVID-19) mRNA BNT-162b2 vac 12/31/21 Recorded SARS-CoV-2 (COVID-19) mRNA BNT-162b2 vac 01/01/21 Recorded SARS-CoV-2 (COVID-19) mRNA BNT-162b2 vac 06/10/20 Recorded SARS-CoV-2 (COVID-19) mRNA BNT-162b2 vac 05/19/20 Recorded SARS-CoV-2 mRNA (ptsbrmz-uqgi-gucov) vax 08/08/21 Recorded Medications Admelog 100 units/mL [...] Refills, Maintenance, 11/25/23 1:29:00 PM EDT, Tablet, [facility], Partial fill upon patient [...] 8:19:00 AM EDT, Route to Pharmacy Electronically, [facility], Partial fill upon patient [...] Refills, Maintenance, 04/15/21 12:01:00 PM EST, Tablet, [facility], Partial fill upon patient [...] Refills, Maintenance, 05/21/23 1:36:00 PM EDT, Tablet, [facility] 3, 170, cm, 05/21/23 7:47:00 EDT, Height, [...] 1:29:00 PM EDT, Route to Pharmacy Electronically, [facility], Partial fill upon patient [...] 5 Liter O2 concentrator - fax is [phone] - use order # [id number], 12/20/23 2:16:00 PM EDT, Supply Start Date: 12/20/23 Status: Ordered Quantity: 1.0 Unit: each Repeat number: 1 Potassium Chloride (Eqv-K-Tab) 20 mEq oral tablet, extended release 1 tablet = 20 mEq, By Mouth, Daily, MD aware of spironolactone, # 30 tablet, 2 Refills, Maintenance, 03/06/24 2:30:00 PM EST, ER Tablet, [facility], Partial fill upon patient [...] 4:52:00 PM EDT, Route to Pharmacy Electronically, [facility], Partial fill upon patient [...] Refills, Maintenance, 08/14/23 4:54:00 PM EDT, Tablet, [facility], Partial fill upon patient [...] 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 Vital Signs Most recent to oldest [Reference Range]: 1 2 3 Height 170 cm (03/17/24 9:42 AM) Weight 87 kg (03/17/24 9:42 AM) Oxygen Saturation [94-100 %] 96 % (03/17/24 12:14 PM) 97 % (03/17/24 12:06 PM) 96 % (03/17/24 11:51 AM) Pulse Rate [55-90 bpm] 74 bpm (03/17/24 12:14 PM) 74 bpm (03/17/24 12:06 PM) 78 bpm (03/17/24 11:51 AM) Body Mass Index [18.5-24.99 kg/m2] 30.1 kg/m2 *>HHI* (03/17/24 9:42 AM) Blood Pressure [90-138/55-84 mm Hg] 122/51mm Hg (03/17/24 12:14 PM) 125/77mm Hg (03/17/24 12:06 PM) 115/57mm Hg (03/17/24 11:51 AM) Respiratory Rate [16-30 br/min] 16 br/min (03/17/24 12:14 PM) 19 br/min (03/17/24 12:06 PM) 18 br/min (03/17/24 11:51 AM) Temperature [96.8-100.4 DegF] 97.5 DegF (03/17/24 9:42 AM) Liters per Minute 3 L/min (03/17/24 12:14 PM) 3 L/min (03/17/24 12:07 PM) 3 L/min (03/17/24 12:06 PM) Mode of Delivery (Oxygen) Nasal cannula (03/17/24 12:14 PM) Nasal cannula (03/17/24 12:07 PM) Nasal cannula (03/17/24 12:06 PM) Blood pressure sites Arm, left (03/17/24 12:14 PM) Arm, left (03/17/24 12:06 PM) Arm, left (03/17/24 11:51 AM) Temperature Route Temporal (03/17/24 9:42 AM) Dry Weight 87 kg (03/17/24 9:42 AM) Weight Obtained Via Patient/family state d (03/17/24 9:42 AM) Dry Weight Obtained Via Patient/family s tated (03/17/24 9:42 AM) Social History Social History Type Response Tobacco Other: 1 1/2 pks per day x's 53 years. Type: Cigarettes. Sex Sex Representation Male (finding) Clinical Note * Event Display: GG EGD Please click on pdf link to open report Note * Nohemi Sparks RN: PERFORM Event Display: Discharge/Transfer Note Hospital Authored Date: [id number] Nursing Discharge Note Entered On: 03/17/2024 11:46 EST Performed On: 03/17/2024 11:46 EST by Nohemi Sparks RN Nursing Discharge Note 2 Discharge Time : 03/17/2024 12:33 EST Nohemi Sparks RN - 03/17/2024 12:34 EST Discharge Level of Care at Discharge : Home/Long Term/Foster Care Patient Left Unit Via : Wheelchair Patient Accompanied Off Unit with : Responsible adult DC Instructions Provided & Signed by Pt : Yes Patient Understands D/C Instructions : Yes Patient Instructions Discharge Signed : Yes Did Pt have Specialty Bed or Wound Vac : No Nohemi Sparks RN - 03/17/2024 11:46 EST * Nohemi Sparks RN: PERFORM Event Display: Patient Education/Instruction Authored Date: [id number] Inpatient Adult Discharge Instructions. [address] [address] Name: TONY WILKERSON : 1945?? Visit: 03/17/2024 08:16?? Current Date: 03/17/2024 12:24 ?? Account: [id number]?? Inpatient Adult Discharge Instructions We would like to thank you for allowing us to assist you with your healthcare needs. The following includes patient education materials and information regarding your injury/illness. Our entire staffstrives to provide an excellent experience for our patients and their families. PLEASE ENSURE YOU FOLLOW-UP PER THE INSTRUCTIONS BELOW! ?? YOUR OPINION IS IMPORTANT TO US! Please complete the survey you may receive by mail or email. Your feedback will be used to make improvements to the healthcare experiences of our patients and their families. Surveys are administered by [employer] ?? If further treatment with your primary care physician or another doctor is recommended, it is important for you to keep the appointment. Call your primary care physician or return to the Emergency Department immediately if your condition worsens, fails to improve, or new symptoms develop. If you need to find a doctor, you can call [facility] for a referral at [phone] or toll free at [phone] ([phone]) or log in to [email or web address].. ?? [facility], in keeping with [facility] guidance, no longer requires face masks for staff, patientsor visitors in most situations. Similiar to time spent indoors at other locations, there is the chance that you were exposed to repiratory viruses during your time with us (such as flu or COVID-19). If you develop symptoms concerning for a viral respiratory infection, please seek testing (and treatment if indicated) from your medical provider or home test kit. ?? You can view and manage your care through the patient portal or by using a health care ricky of your choosing. [employer] is a website that allows you to securely view your medical information including your hospital discharge summary, office visit summaries, medications and follow-up visits. You can also request appointments, renew medications, and request access to your medical information using a health care ricky of your choosing, or just ask a question. You can enroll at [email or web address] or register during your next office visit. You have been discharged from [facility], Patient Care Unit: ENDO??. If you have any questions regarding these instructions, including results of studies pending, afteryou leave, please call us and we will be happy to assist you 10/09. [facility] Nursing Unit Direct Phone Number, for 10/09 contact and results of studies pending ENDO [address] [place] [address] Your Care Team Attending Physician Saran Hodge Jr, MD?? Consulting Providers Saran Hodge Jr, MD?? Discharging Providers Saran Hodge Jr, MD Tests Performed Below is a partial list of the tests performed during your hospitalization. You may have had other tests and procedures not included in this list. Please discuss all test results with your provider. No tests performed during this visit.?? Primary Care Provider Buddy Cota MD? Advance Directive Health Care Proxy on File Yes - Health Care Proxy Yes - MOLST Discharge Vitals Temperature: 97.5 DegF Height: 170 cm Pulse Rate: 74 bpm Weight: 87 kg Respiratory Rate: 16 br/min Body Mass Index:??30.1 kg/m2??Critical Systolic Blood Pressure: 122 mm Hg Body surface area: 2.03 Diastolic Blood Pressure:??51 mm Hg??Low ?? Oxygen Saturation: 96 % ?? Studies Pending All studies ordered during this hospital stay have been completed unless listed below. Please discuss all pending results with your provider listed above in these instructions. ?? No incomplete studies found?? 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 ?? It is very important that you follow these instructions: ???You may have a mild sore throat or hoarseness after the procedure. This is because of the tube and the anesthetic.?You may feel nauseated today. This sometimes happens because of the medications that are used. This should get better within a few hours. If your nausea continues for more than 24 hours contact your doctor's office. .?Do not drive any motor vehicle or operate dangerous equipment. Weakness and lack of coordinationare the result of the medications that were administered during the procedure.?Do not conduct important business or sign any legal documents on the day of the procedure, sinceyou may feel drowsy from the medications that were administered today.?If you have redness or swelling at sites where medications were given, place a warm wet washcloth over the affected area for twenty minutes. If the symptoms persist for over two days please contact your doctor's office.?Call your doctor's office if you develop fever greater than 101 degrees or chills during the next 48 hours.?Please call for any issues or questions that may arise. Our office phone number is [phone] ?? Orders?? Daystay Protocol, ??03/17/24 12:15:00 EST?? Scheduled Follow-Up Appointments Saturday 1:00 PM EST ?? Where: [facility] [address] [place] [address]- Status: Pending Saturday 3:00 PM EST ?? With: Archie MCLEOD, Puneet Britt Where: [facility] [address] [place] [address]- Status: Pending Saturday 1:00 PM EDT ?? Where: [facility] [address] [place] [address]- Status: Pending Saturday 10:00 AM EDT ?? With: Puneet MUNOZ, Nohemi Harkins Where: [facility] [address] [place] [address]- Status: Pending You Need to Schedule the Following Appointments Follow Up with??follow up with PCP as needed Follow Up with??Buddy Cota When:??In 0 days Discharge Medications TONY WILKERSON :1945 Visit Date:03/17/2024 Medications: Please continue your medications until treatment is completed or stopped by your provider. Medications not listed below should be discontinued. Discuss any questions related to medications with your provider. What How Much When Instructions Next Dose Unchanged Albuterol (Ventolin HFA 108 mcg/ inh inhalationaerosol with adapter) 2 puff(s) Inhalation 4 times a day as needed for for wheezing Unchanged Ascorbic Acid (Vitamin C 500 mg oral tablet) 1 tab(s) Oral Daily Unchanged Atorvastatin (atorvastatin 40 mg oral tablet) 1 tab(s) Oral Daily at Bedtime Unchanged dapagliflozin (Farxiga 10 mg oral tablet) 1 tab(s) Oral Daily Unchanged Digoxin (digoxin 0.125 mg oral tablet) 0.125 Milligram Oral Daily Unchanged Ferrous Sulfate (ferrous sulfate 325 mg oral tablet) 1 tab(s) Oral Twice a day Unchanged Insulin Glargine (Basaglar KwikPen) 28 unit(s) Subcutaneous Infusion Daily 30 units of Basaglar in the morning, and 12 at night. ?? Unchanged Insulin Glargine (Basaglar KwikPen) 8 unit(s) Subcutaneous Infusion Daily at Bedtime Unchanged Insulin Lispro (Admelog 100 units/ mL injectable solution) 1 unit(s) Subcutaneous Infusion 3 times a day Unchanged Metolazone (metolazone 5 mg oral tablet) TAKE ONE TABLET BY MOUTH EVERY SATURDAY: TAKE 30 MINUTES BEFORE THE TORSEMIDE DOSE EVERY SATURDAY ?? Unchanged Metoprolol (metoprolol 25 mg oral tablet, extended release) 1 tab(s) Oral Daily Unchanged Multivitamin With Minerals (Theratrum Complete with Lutein and Lycopene) Oral Daily Unchanged Pantoprazole (Protonix 40 mg oral delayed release tablet) 1 tab(s) Oral Twice a day Duration: 30 Days Unchanged Potassium Chloride (Potassium Chloride (Eqv-K-Tab) 20 mEq oral tablet, extended release) 1 tab(s) Oral Daily MD aware of spironolactone ?? Unchanged Spironolactone (spironolactone 25 mg oral tablet) 1 tab(s) Oral Daily Unchanged torsemide (torsemide 100 mg oral tablet) 1 tab(s) Oral Twice a day Unchanged umeclidinium-vilanterol (Anoro Ellipta 62.5 mcg-25 mcg/ inh inhalation powder) 1 puff(s) Inhalation Daily Duration: 90 Days Prescription Given During Visit No new medications prescribed at time of discharge.?? Laboratory Results Below is a partial list of the most recent Laboratory test results done prior to this discharge. You may have had other tests and procedures not included in this list. Please discuss all test resultswith your provider. Allergies (NKA means No Known Allergies) NKA No Known Medication Allergies Education Materials Below is the list of Educational Leaflet Providered with your Discharge Instructions. [employer] Patient Education - Surgery Medical Daystay Surgical Overnight Discharge Instructions?? Common Emergency Awareness Tips IS IT A STROKE? Act FAST and Check for these signs: FACE Does the face look uneven? ARM Does one arm drift down? SPEECH Does their speech sound strange? TIME Call at any sign of stroke ?? Heart Attack Signs Chest discomfort: Most heart attacks involve discomfort in the center of the chest and lasts more than a few minutes, or goes away and comes back. It can feel like uncomfortable pressure, squeezing, fullness or pain. Discomfort in upper body: Symptoms can include pain or discomfort in one or both arms, back, neck, jaw or stomach. Shortness of breath: With or without discomfort. Other signs: Breaking out in a cold sweat, nausea, or lightheaded. Remember, MINUTES DO MATTER. If you experience any of these heart attack warning signs, call to get immediate medical attention! ?? Smoking can increase your chances of developing chronic health problems and can cause harmful effects to other family members in your house. If you smoke, you are strongly encouraged to quit. Please call [facility] [employer] Link at [phone] or [phone] ([phone]) or log in to [email or web address] for referrals to smoking cessation programs. ?? 900 Suicide & Crisis Lifeline is available 10/09 if you or someone you know needs to find a reason to keep living. By calling 408 you'll be connected to a skilled, trained counselor at a crisis center in your area. INPATIENT DISCHARGE INSTRUCTIONS SIGNATURE PAGE TONY WILKERSON Location:[facility] Registration Date and Time:03/17/2024 08:16 [facility] Primary Care Physician: Buddy Cota MD, Attending Physician: Naveen De La Torre MD, Saran Sim, I RHEA TONY LINDA, have received the above patient education materials/instructions and have verbalized understanding. If ambulance or transport services are being used I further acknowledge being given a choice of service. ?? If you need to contact me, please call me at this number: . Patient/Dental Laboratory Assistant Name: Patient/Dental Laboratory Assistant Signature: Relationship to Patient: Witness Name/Signature: Date: * Nohemi Sparks RN: PERFORM, SIGN, VERIFY Event Display: Patient Education Handout Authored Date: [id number] * Nohemi Sparks RN: PERFORM Event Display: Patient Education Leaflets Authored Date: [id number] Surgery Medical Daystay Surgical Overnight Discharge Instructions ?? 295 Medical Daystay/Surgical Overnight Discharge Instructions ? Since your coordination and judgment may be altered by medication and/or anesthesia, a responsible adult must drive you home from the hospital. ? If you have received medication for pain or sedation while under our care, you should not drive, operate machinery, drink alcohol, or sign any legal documents for 24 hours.?? You should have someone with you at home tonight. ? Remain at home the day of discharge.?? You may be up and about unless otherwise instructed by your physician. ? You may resume your daily prescription medication schedule.?? Any depressant medication should be avoided for 24 hours unless otherwise instructed by your surgeon or anesthesiologist. ? Call your physician for a follow-up appointment.? If you experience unusual or severe pain not relied by your pain medication, excessive bleedingor drainage, persistent nausea and vomiting, excessive swelling or redness, foul odor from incisionsite or fever over 100.6F, you need to call your physician. ? A follow-up phone call by a nurse will be made the day after your procedure.?? If you have stayed with us over night, you will not be receiving a follow-up phone call. ? Nausea and vomiting are a common side effect of prescription pain medication.?? We recommend that pills are not taken on an empty stomach.?? While taking any prescription pain medication you should not drive or drink alcohol. ? Patient Care team information Care Team Personnel Name: Buddy Cota MD Position: [facility] Physician - Pediatrics Member Role: PCP Address: [address] [place] [address]- Telecom: Name: Tobi Lee MD Position: [facility] Renal MD Member Role: Lifetime Consulting Physician Address: [address] [place] [address] [address] [place] [address]- Telecom: Name: Rita Gaona RN Position: [facility] RN Member Role: Primary Care Nurse Name: Ketty Davis Position: [facility] RN Supv Member Role: Primary Care Nurse Name: Camryn Peña RN Position: S RN Member Role: Primary Care Nurse Name: Ilene Cuba RN Position: S RN Member Role: Primary Care Nurse Name: Tabatha Whitley RN Position: S RN Member Role: Primary Care Nurse Name: Boyd Da Silva RN Position: S RN Member Role: Primary Care Nurse Name: Kd Oconnor MD Position: [facility] Outreach Member Role: Lifetime Consulting Physician Address: [address] [facility] [place], [address] Telecom: Name: Omayra Platt RN Position: [facility] Outreach Member Role: Primary Care Nurse Name: Sean Sawant MD Position: [facility] Renal MD Member Role: Lifetime Consulting Physician Address: [address] [facility] [address] Telecom: Name: Janette Alcala RN Position: [facility] RN Member Role: Primary Care Nurse Care Team Related Persons Name: SLY WILKERSON Name: SLY WILKERSON Name: SLY WILKERSON Insurance Providers Guarantor name: TONY TOROABEL WILKERSON Health Plan Information #: 1 Payer: MEDICARE PART B OUTPT Member Number: [id number] Policy Number: NA Group Number: NA Health Plan Information #: 2 Payer: [facility] SUP Member Number: [id number] Policy Number: NA Group Number: NA
--- OUTSIDE RECORDS SUMMARY | 2024-04-08 12:21 | XMS_ITS | Continuity of Care Document ---
Author Organization [facility] ter Address [address] [place] [id number]- Care Team Providers Care Cane Stripper Name Role Phone Buddy Cota MD Primary Care Physician [phone] Encounter [facility] Date(s): 12/18/23 - 04/01/[address] [address] Attending Physician: Oleagrio Winn MD Admitting Physician: Olegario Winn MD Referring Physician: Olegario Winn MD Encounter Type: Pre-Outpt Allergies, Adverse Reactions, Alerts No Known Allergies Immunizations Given and Recorded Vaccine Date Status Refusal Reason SARS-CoV-2 (COVID-19) mRNA BNT-162b2 vac 12/31/21 Recorded SARS-CoV-2 (COVID-19) mRNA BNT-162b2 vac 01/01/21 Recorded SARS-CoV-2 (COVID-19) mRNA BNT-162b2 vac 06/10/20 Recorded SARS-CoV-2 (COVID-19) mRNA BNT-162b2 vac 05/19/20 Recorded SARS-CoV-2 mRNA (simisty-hrgj-oeyaa) vax 08/08/21 Recorded Medications Admelog 100 units/mL [...] Refills, Maintenance, 11/25/23 1:29:00 PM EDT, Tablet, [facility], Partial fill upon patient request [...] 8:19:00 AM EDT, Route to Pharmacy Electronically, [facility], Partial fill upon patient request [...] Refills, Maintenance, 04/15/21 12:01:00 PM EST, Tablet, [facility], Partial fill upon patient request [...] Refills, Maintenance, 05/21/23 1:36:00 PM EDT, Tablet, [facility], 170, cm, 05/21/23 7:47:00 [...] 1:29:00 PM EDT, Route to Pharmacy Electronically, [facility], Partial fill upon patient request [...] 5 Liter O2 concentrator - fax is [phone] - use order # [id number], 12/20/23 2:16:00 PM EDT, Supply Start Date: 12/20/23 Status: Ordered Quantity: 1.0 Unit: each Repeat number: 1 Potassium Chloride (Eqv-K-Tab) 20 mEq oral tablet, extended release 1 tablet = 20 mEq, By Mouth, Daily, MD aware of spironolactone, # 30 tablet, 2 Refills, Maintenance, 03/06/24 2:30:00 PM EST, ER Tablet, [facility], Partial fill upon patient request [...] 4:52:00 PM EDT, Route to Pharmacy Electronically, [facility], Partial fill upon patient request [...] Refills, Maintenance, 08/14/23 4:54:00 PM EDT, Tablet, [facility], Partial fill upon patient request if [...] Team Personnel Name: Buddy Cota MD Position: [facility] Physician - Pediatrics Member Role: PCP Address: [address] [place] [id number]- Telecom: Name: Tobi Lee MD Position: [facility] Renal MD Member Role: Lifetime Consulting Physician Address: [address] [place] [address] [address] [facility] [place] [address]- [place] Telecom: Name: Rita Gaona RN Position: [facility] RN Member Role: Primary Care Nurse Name: Ketty Davis Position: [facility] RN Supv Member Role: Primary Care Nurse Name: Camryn Peña RN Position: [facility] RN Member Role: Primary Care Nurse Name: Ilene Cuba RN Position: [facility] RN Member Role: Primary Care Nurse Name: Tabatha Whitley RN Position: [facility] RN Member Role: Primary Care Nurse Name: Boyd Da Silva RN Position: [facility] RN Member Role: Primary Care Nurse Name: Kd Oconnor MD Position: [facility] Outreach Member Role: Lifetime Consulting Physician Address: [address] [facility] [place], [place] [address] Telecom: Name: Omayra Platt RN Position: [facility] Outreach Member Role: Primary Care Nurse Name: Sean Sawant MD Position: [facility] Renal MD Member Role: Lifetime Consulting Physician Address: [address] [facility] [place] [place] [address]- [place] Telecom: Name: Janette Alcala RN Position: [facility] RN Member Role: Primary Care Nurse Care Team Related Persons Name: SLY WILKERSON Name: RHEASLY Name: SLY WILKERSON Insurance Providers Guarantor name: TONY MCKEON RHEA Health Plan Information #: 2 Payer: [facility] [email or web address] [facility] Member Number: [id number] Policy Number: NA Group Number: NA Health Plan Information #: 1 Payer: MEDICARE PART B OUTPT Member Number: [id number] Policy Number: ISSA Group Number: ISSA Health Plan Information #: 3 Payer: MEDICARE A INPT 25 Member Number: ISSA Policy Number: ISSA Group Number: NA
== END 2024-04-08 12:17 | disposition home or self-care (01) ==
PROVIDERS: PCP Internal Medicine; Visit Provider Internal Medicine Hypertension Specialist
DX: N18.9 Chronic kidney disease, unspecified (principal)
CPT/HCPCS: 99214

== ENCOUNTER → 2024-04-08 11:47 | Outpatient (BNVA) | payer MEDICARE, SELFPAY | PROVIDERS: PCP Internal Medicine; Visit Provider Internal Medicine Hypertension Specialist | DX: N18.9 Chronic kidney disease, unspecified (principal) | CPT/HCPCS: 99212 ==

== ENCOUNTER 2024-07-29 10:08 | Outpatient (AMB) | payer MEDICARE, SELFPAY ==
[2024-07-29 10:13] VITALS: BP 110/50; PULSE 72; O2SAT 98; BMI 29.6
--- NOTE | 2024-07-29 10:13 | HO.NEPHOV_ITS ---
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: No Accompanied by: Spouse Allergies No Known Allergies Allergy (Verified 07/29/24 10:16) Medication List - Last Reconciled 07/29/24 by Tobi Lee MD albuterol sulfate 90 mcg/actuation (Ventolin HFA) inhalation ascorbic acid (vitamin C) (Vitamin C) 500 mg PO DAILY aspirin 81 mg PO DAILY atorvastatin 40 mg PO DAILY dapagliflozin propanediol (Farxiga) 10 mg PO DAILY digoxin 125 mcg PO DAILY ferrous sulfate 325 mg PO BID insulin glargine (Basaglar KwikPen U-100 Insulin) 12 units subcut insulin lispro (Admelog U-100 Insulin lispro) subcut insulin syringe-needle U-100 As directed metolazone 5 mg PO ONCE metoprolol succinate ER 25 mg PO DAILY potassium chloride ER mEq PO DAILY spironolactone 25 mg PO DAILY torsemide 100 mg PO BID umeclidinium-vilanterol 62.5-25 mcg/actuation (Anoro Ellipta) 1 inh inhalation DAILY HPI Comments Details: Krzysztof is a elderly man with a history of chronic kidney disease in the setting of longstanding hypertension and diabetes mellitus. He is history of non-small cell carcinoma of the lung. He is being followed by Dr. Villasenor Recently was hospitalized for severe anemia and received blood transfusion. The recent serum creatinine 0.9 mg/dL. He is on high dose of diuretics currently on torsemide 100 mg b.i.d. and metolazone 5 mg once a day. He has been watching his weight at home. Today he denies any new complaints like headache nausea vomiting or shortness of breath. No urinary symptoms. 04/08/24 Had 3 hospitalization Had GI bleed s/p Endo s/p IV Iron for anemia Has a lung nodule and starting radiation Rx on April 20 07/29/24 79-year-old male presenting with chronic kidney disease follow-up. The condition has shown creatinine fluctuations with recent readings close to baseline. The patient's historical BUN readings were 32 in March and 28 last January. The patient's diabetes mellitus management involves controlling blood glucose levels, with readings often in the 200s. The occasional spike was noted, such as a reading of 575 on July 14. The patient underwent a course of radiation therapy for lung neoplasia in April 2024, with a follow-up CT scan planned in October or November 2022 to assess treatment effectiveness. [facility] Social History Patient Tobacco Use Status: Current someday Tobacco user Physical Exam Vital Signs: Last Vital Signs Pulse 72 07/29/24 10:13 BP 110/50 L 07/29/24 10:13 Pulse Ox 98 07/29/24 10:13 Oxygen Delivery Method Room Air 07/29/24 10:13 BMI result Body Mass Index 29.6 Const General: comfortable; No acute distress Orientation/consciousness: patient oriented x3 Eyes General: appearance normal, both eyes and all related structures Visual Modi: normal visual modi by confrontation Neck Neck: Yes supple and Yes no JVD Resp Effort & Inspection: normal respiratory effort and respiratory effort not decreased Auscultation: rhonchi Cardio Palpation: no palpable S3 and no palpable S4 Heart sounds: no rubs GI Inspection: Yes normal to inspection Palpation (GI): Soft to palpation Percussion: Yes normal to percussion Auscultation: normal bowel sounds General: Yes no CVA tenderness Back/Spine/Pelvis Back: no CVA tenderness Skin General skin exam: no petechiae and no purpura Neuro General: patient oriented x3 and no focal motor deficits Extrem General: No clubbing Results Reviewed Results Reviewed: Creatinine 0.9 01/25/24 BUN 28 Cr 1.2 03/21/24 BUN 32 : cr 1.12 Nephrology Results: No Data to Display Assessment & Plan Assessment & Plan (1) CKD (chronic kidney disease): Code(s): N18.9 - Chronic kidney disease, unspecified Category: Medical Plan Elderly man with chronic kidney disease in the setting of longstanding hypertension diabetes mellitus and congestive heart failure. From a renal standpoint he is doing reasonably well. Renal function is close to baseline. 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 Encouraged to stay on low-sodium diet and keep monitoring his weight at home. Non-small cell carcinoma of the lung being followed by oncologist. s/p radiationRx in April 2024 History of severe anemia status post blood transfusion. s/p EGD and IV Iron No absolute indication for Epogen at this time. No changes were made to his prescriptions today. Shall will follow along as needed. Orders: Orders Electrolytes 6 Months N18.9 - Chronic kidney disease, unspecified Calcium 6 Months N18.9 - Chronic kidney disease, unspecified Complete Blood Count no Diff 6 Months N18.9 - Chronic kidney disease, unspecified Blood Urea Nitrogen 6 Months N18.4 - Chronic kidney disease, stage 4 (severe), N18.9 - Chronic kidney disease, unspecified Creatinine 6 Months N18.9 - Chronic kidney disease, unspecified Coding Level of Care Code Est Pt Level 4 (76186) Diagnoses CKD (chronic kidney disease) N18.9
--- OUTSIDE RECORDS SUMMARY | 2024-07-29 11:28 | XMS_ITS ---
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
== END 2024-07-29 10:36 | disposition home or self-care (01) ==
LOC: HO.HKAS 10:09
PROVIDERS: PCP Internal Medicine; Visit Provider Internal Medicine Hypertension Specialist
DX: N18.9 Chronic kidney disease, unspecified (principal)
CPT/HCPCS: 99214

== ENCOUNTER → 2024-07-29 10:08 | Outpatient (BNVA) | payer MEDICARE, SELFPAY | PROVIDERS: PCP Internal Medicine; Visit Provider Internal Medicine Hypertension Specialist | DX: N18.9 Chronic kidney disease, unspecified (principal) | CPT/HCPCS: 99212 ==